=== PATIENT | female | born 1985 | race Caucasian/White ===

== ENCOUNTER → 2025-03-05 13:04 | Outpatient (REF) | payer OTHER, SELFPAY | LOC: RAD 13:04 | PROVIDERS: ATTENDING PHYSICIAN Obstetrics & Gynecology | DX: Z31.41 Encounter for fertility testing (principal); N97.9 Female infertility, unspecified | CPT/HCPCS: 58340; 74740 ==

== ENCOUNTER → 2025-04-17 14:28 | Outpatient (REF) | payer OTHER, SELFPAY | LOC: HWRAD 14:28 | PROVIDERS: ATTENDING PHYSICIAN Podiatrist Foot & Ankle Surgery; FAMILY PHYSICIAN Family Medicine | DX: M20.42 Other hammer toe(s) (acquired), left foot (principal) | CPT/HCPCS: 73630 ==

== ENCOUNTER 2025-06-15 19:43 | Emergency (ER) | payer OTHER, SELFPAY ==
[2025-06-15 19:47] VITALS: BP 142/109
[2025-06-15 20:27] LABS: Urine Character Clear (Clear)
[2025-06-15 20:28] LABS: Hematocrit 38.6 % (37.0-47.0); Hemoglobin 13.7 g/dL (12.0-16.0); Mean Corp Hgb Conc. 35.5 g/dL (33.0-37.0); Mean Corpuscular Volume 92.8 fL (81.0-99.0); Nucleated Red Blood Cells % 0 %; Platelet Count 295 10^3/uL (130-400); Red Cell Dist. Width 12.1 % (11.5-14.5)
[2025-06-15 20:33] LABS: Urine Squamous Cell >30 /LPF (Few)
[2025-06-15 20:34] LABS: Urine Red Blood Cell 0-2 /HPF (0-2)
[2025-06-15 20:44] LABS: ALT (SGPT) 14 U/L (0-35); AST (SGOT) 19 U/L (14-36); Albumin 4.4 g/dl (3.5-5.0); Alkaline Phosphatase 48 U/L (38-126); Blood Urea Nitrogen 13 mg/dl (7-17); Calcium 9.8 mg/dl (8.4-10.2); Carbon Dioxide 26 mmol/L (22-30); Chloride 105 mmol/L (98-107); Glucose 102 mg/dl (70-99); Potassium 4.0 mmol/L (3.5-5.1); Sodium 136 mmol/L (135-145); Total Protein 7.2 g/dl (6.3-8.2); eGFR > 60.00
--- NOTE | 2025-06-16 00:06 | ED.GENMED ---
History of Present Illness
General
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
Time Seen by Provider: 06/15/25 23:26
History of Present Illness
History of Present Illness:
39-year-old female without significant past medical history presenting for lower abdominal pain and pelvic pain. Patient reports that 11 days ago she had a retrieval completed as part of fertility treatment. She reports that she got her menstrual
cycle last week, which was told to be expected. Her menstrual ended 2 days ago. This afternoon she started to have lower abdominal pain and cramping. Notes chills without fever. Reports history of hernia repair as 3-year-old, otherwise denies
abdominal surgeries. Denies chest pain or difficulty breathing. Denies urinary complaints. She did call her fertility doctor who reported that they can follow-up with her tomorrow. She took ibuprofen earlier today for pain. Denies additional
acute medical complaints
Past History
Past History
ED Past Medical History: Psychiatric (Anxiety) and Other (ovarian cyst, ADHD)
ED Past Surgical History: Appendectomy and Other (hernia repair)
Social History
Tobacco: Non-smoker
Alcohol: Occasional
Drug: None
Living: with roommate
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
Phy Exam
Physical Exam
Physical Exam:
General: Well-appearing, no clinical signs of dehydration, nontoxic and in no acute distress
HEENT: protecting airway
Neck: appears supple
CV: Normal heart rate, regular rhythm
Resp: No accessory muscle use, no increased work of breathing, lungs clear to auscultation bilaterally
Abd: Soft and non-distended, generalized tenderness in the lower abdomen, most prominent over the suprapubic region. No rebound or guarding
Extremities: No deformities, no swelling
Neuro: alert, no focal neurologic deficit
: deferred
Rectal: deferred
Psych: Normal affect
Skin: Intact
Course
Orders/Labs/Results
Orders:
Orders
06/15/25 20:13
Complete Blood Count/With Diff Urgent
Comprehensive Metabolic Panel Urgent
Lactate Level [Lactic Acid] Urgent
06/15/25 20:18
Urine Microscopic Reflex Cult Urgent
Urine Reflex Culture from UA [Urinalysis Reflex To Culture] Urgent
Date Specimen was Collected: 06/15/25
Time Specimen was Collected: 19:51
Urine Culture Urgent
SHAMEKA Source: U
Specimen Description:
Date Specimen was Collected: 06/15/25
Time Specimen was Collected: 19:51
06/15/25 23:54
0.9% Sodium Chloride 1000 ml [Nss] 1,000 ml IV BOLUS
Ketorolac [Toradol] 15 mg IV NOW STA
06/16/25 00:00
US Pelvis Only (non-obstetric) Urgent
Reason For Exam: pelvic pain, recent egg retrieval
06/16/25 00:25
Ondansetron Injectable [Zofran] 4 mg .ROUTE .STK-MED ONE
Ondansetron Injectable [Zofran] 4 mg IV NOW STA
Abnormal Lab Results
06/15/25 06/15/25
20:13 20:18
RBC 4.16 L 10^6/uL
(4.20-5.40)
MCH 32.9 H pg
(27.0-31.0)
Glucose 102 H mg/dl
(70-99)
Ur Occult Blood Reflex 3+ A
(Negative)
Leukocyte Esterase Rfl 1+ A
(Negative)
Urine Bacteria (Reflex) Many A
(Negative)
Urine Albumin (Reflex) 2+ A
(Neg - Trace)
06/15/25 20:13
06/15/25 20:13
Vital Signs
Initial and Last Documented VS:
Initial Vital Signs
Temp Pulse Resp BP Pulse Ox
97.8 F 83 20 142/109 99
06/15/25 19:47 06/15/25 19:47 06/15/25 19:47 06/15/25 19:47 06/15/25 19:47
Last Documented Vital Signs
Temp Pulse Resp BP Pulse Ox
97.8 F 83 18 142/109 98
06/15/25 19:47 06/15/25 19:47 06/16/25 03:05 06/15/25 19:47 06/16/25 03:05
MDM/Problems Addressed
MDM/Problems Addressed:
39-year-old female presenting to the emergency department for pelvic pain. Vital signs are significant for hypertension.
On exam, patient is in no acute distress, slightly uncomfortable secondary to pain. Mild reproducible tenderness to the lower abdomen, most prominent over the suprapubic region. Patient does note history of ovarian cyst in the past, which could be
contributing to patient's symptoms, possible ruptured cyst. Ovarian torsion is also consideration, lower suspicion given no lateralizing tenderness. UTI is a consideration. Urine obtained prior to my assessment, does show some mild leuks, however
no WBCs or additional infectious findings. Labs also obtained prior to my assessment, no leukocytosis. Patient afebrile. Without concern for systemic infection. Will obtain ultrasound imaging for further assessment. Toradol administered for pain
03:20 -ultrasound without any acute findings. Patient does note some improvement in her pain. On reassessment, continues to have some mild lower discomfort. Notes history of appendectomy in the past, concern appendicitis. Again urinary tract
affection is a consideration. For this reason we will start on Keflex. Patient remains nontoxic and hemodynamically stable with again lower suspicion for a additional serious intra-abdominal process. Do not feel patient requires any advanced
imaging at this time. Feel stable for discharge, with close neuro follow-up with fertility doctor. Return precautions discussed with patient and mother at bedside who verbalized understanding
*Pulse Oximetry
SaO2: 99
Oxygen Mode of Delivery: Room air
Patient hypoxic: no
*Critical Care Note
Total Time (30-74mins, 75-104mins- exclusive of procedures): Not Applicable
ED Attending Note
-
Portions of this chart may have been created with voice recognition software.� Occasional wrong word or��sound alike� substitutions may have occurred due to the inherent limitations of voice recognition software.
Discharge Plan
Departure
Prescriptions:
No Action
dextroamphetamine-amphetamine [Adderall] 20 MG tablet
30 mg PO DAILY
Patient Comments:
Pt states she takes this as needed, does not take every day.
multivitamin 1 EACH tablet
1 ea PO DAILY
sulfamethoxazole-trimethoprim 1 TABLET tablet
1 tab PO BID Qty: 14 0RF
Referrals:
Andrea Acharya DO [Family Provider, Family Practice]
Interventions
Interventions:
*Risk Screen - Suicide Last Done: 06/16/25 00:22
*General Assessment Last Done: 06/15/25 19:47
*Neglect/Abuse Screening Last Done: 06/16/25 00:22
*ED- Fall Risk Assessment Last Done: 06/16/25 00:22
ED-Female Genitourinary Assessment Last Done: 06/16/25 00:22
Discharge Date and Time
Print Language: EQUATORIAL GUINEAN
[2025-06-16] MEDS: TORADOL 15 MG IV (00:09)
[2025-06-16] MEDS: NSS 1000 IV (00:09)
[2025-06-16] MEDS: ZOFRAN 4 MG IV (00:29)
[2025-06-16] MEDS: KEFLEX 500 MG PO (03:28)
[2025-06-16 03:30] VITALS: BP 121/84
== END 2025-06-16 03:36 | disposition home or self-care (01) ==
LOC: EMR 19:43
PROVIDERS: Emergency Medicine; EMERGENCY PHYSICIAN Student in an Organized Health Care Education/Training Program; FAMILY PHYSICIAN Family Medicine
DX: R10.9 Unspecified abdominal pain (principal); N39.0 Urinary tract infection, site not specified; F41.9 Anxiety disorder, unspecified; F90.9 Attention-deficit hyperactivity disorder, unspecified type; I10 Essential (primary) hypertension; Z90.49 Acquired absence of other specified parts of digestive tract
CPT/HCPCS: 99284; 96374; 96375; 96361; 76856; 80053; 81003; 81015; 83605; 85025; 87077; 87086

== ENCOUNTER 2025-06-17 06:57 | Emergency (ER) | payer OTHER, SELFPAY ==
[2025-06-17 07:02] VITALS: BP 113/76
--- NOTE | 2025-06-17 09:01 | ED.GENMED ---
History of Present Illness
General
Chief Complaint: Abdominal Symptoms
Time Seen by Provider: 06/17/25 08:51
History of Present Illness
History of Present Illness:
39-year-old female presents to the emergency department for evaluation of persistent left lower quadrant pain. She was seen here 2 days ago for this, at this point she is 5 days status post a retrieval procedure. Underwent ultrasound here 2 days
ago that was unremarkable. Continues to have sharp episodic pains in the left lower quadrant. Has not had a bowel movement in 5 days. Denies any fevers or chills but does have nausea with vomiting. No lower urinary tract voiding symptoms. Prior
abdominal surgery with a includes hernia repair and appendectomy
Past History
Past History
ED Past Medical History: Psychiatric (Anxiety) and Other (ovarian cyst, ADHD)
ED Past Surgical History: Appendectomy and Other (hernia repair)
Social History
Tobacco: Non-smoker
Alcohol: Occasional
Drug: None
Living: with roommate
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
Review of Systems
Review of Systems
Allergies reviewed?: Yes
All Other Systems: ROS reviewed and negative except as documented in HPI and ROS
Phy Exam
Physical Exam
Physical Exam:
GEN: Well appearing, NAD, WDWN
HEENT: Oral mucosa moist, no scleral icterus
Cardiac: Regular rate
Lung: No respiratory distress, no tachypnea
Abdomen: Soft, moderate left lower quadrant tenderness with no masses or rigidity
MSK: No gross deformity or injuries
Skin: Good color, no pallor or jaundice, no rashes
Neuro: AO x3, moves all extremities freely
Psych: Calm, cooperative
Course
Orders/Labs/Results
Orders:
Orders
06/17/25 09:00
CT Abd/Pel (IV only)-DH only Urgent
Comment:
Reason For Exam: LLQ pain
Test Result ONCE
06/17/25 09:01
Morphine Sulfate 4 mg IV NOW STA
06/17/25 09:10
Ondansetron Injectable [Zofran] 4 mg IV NOW STA
06/17/25 09:16
Complete Blood Count/With Diff Urgent
Comprehensive Metabolic Panel Urgent
HCG, Serum Qualitative Screen Urgent
06/17/25 09:50
Lactated Ringers [Lr] 1,000 ml IV BOLUS
06/17/25 10:27
Magnesium Citrate [Citroma] 300 ml PO ONCE ONE
Abnormal Lab Results
06/17/25
09:16
WBC 21.7 H 10^3/uL
(4.8-10.8)
RBC 4.02 L 10^6/uL
(4.20-5.40)
MCH 33.3 H pg
(27.0-31.0)
MPV 10.7 H fL
(7.4-10.4)
Abs Immat Gran (auto) 0.1 H 10^3/uL
(0-0.05)
Absolute Neuts (auto) 19.0 H 10^3/uL
(1.4-6.5)
Absolute Lymphs (auto) 1.0 L 10^3/uL
(1.2-3.4)
Absolute Monos (auto) 1.5 H 10^3/uL
(0.1-0.6)
Immature Gran % 0.6 H %
(0-0.5)
Neutrophils % 87.7 H %
(42.2-75.2)
Lymphocytes % 4.5 L %
(20.5-51.1)
Sodium 134 L mmol/L
(135-145)
Glucose 113 H mg/dl
(70-99)
06/17/25 09:16
06/17/25 09:16
Vital Signs
Initial and Last Documented VS:
Initial Vital Signs
Temp Pulse Resp BP Pulse Ox
97.9 F 102 16 113/76 98
06/17/25 07:02 06/17/25 07:02 06/17/25 07:02 06/17/25 07:02 06/17/25 07:02
Last Documented Vital Signs
Temp Pulse Resp BP Pulse Ox
97.9 F 86 16 113/74 100
06/17/25 07:02 06/17/25 09:48 06/17/25 09:48 06/17/25 09:48 06/17/25 09:48
MDM/Problems Addressed
MDM/Problems Addressed:
Imaging reveals stercoral colitis which may be secondary to her recent ovarian egg harvesting procedure. As it is quite proximal in the descending colon enema is not likely be beneficial thus we will treat with laxatives. She does have significant
leukocytosis but this is likely a stress response due to pain and hypovolemia, do not see any indication for antibiotics at this point
*Pulse Oximetry
SaO2: 98
Oxygen Mode of Delivery: Room air
Patient hypoxic: no
*Critical Care Note
Total Time (30-74mins, 75-104mins- exclusive of procedures): Not Applicable
ED Attending Note
-
Portions of this chart may have been created with voice recognition software.� Occasional wrong word or��sound alike� substitutions may have occurred due to the inherent limitations of voice recognition software.
Discharge Plan
Departure
Patient Disposition: Home (Routine Discharge)
Date of Disposition: 06/17/25
Time of Disposition: 10:27
Patient with high blood pressure during this ER visit?: No
Discharge Problem:
Stercoral colitis
Instructions: Constipation, Adult (DC)
Prescriptions:
New
ondansetron 4 mg tablet,disintegrating
4 mg PO TIDPRN PRN (Reason: nausea/vomiting) Qty: 10 0RF
No Action
dextroamphetamine-amphetamine [Adderall] 20 MG tablet
30 mg PO DAILY
Patient Comments:
Pt states she takes this as needed, does not take every day.
multivitamin 1 EACH tablet
1 ea PO DAILY
sulfamethoxazole-trimethoprim 1 TABLET tablet
1 tab PO BID Qty: 14 0RF
cephalexin 500 mg capsule
500 mg PO Q12H 7 Days Qty: 14 0RF
ondansetron 4 mg Tablet,Disintegrating
4 mg PO TIDPRN PRN (Reason: nausea/vomiting) Qty: 6 0RF
Referrals:
Andrea Acharya DO [Family Provider, Family Practice]
Activity Restrictions/Additional Instructions:
If the magnesium citrate does not provide relief, proceed with the following bowel prep starting the tomorrow. Mix a full bottle of 238 g of MiraLAX in 2 to 32 ounce beverages of clear liquid of your choice. Take 2 Dulcolax tablets before you
start the prep and 2 Dulcolax tablets after you finish the prep 8 hours later.
Interventions
Interventions:
*Risk Screen - Suicide Last Done: 06/17/25 07:02
*General Assessment Last Done: 06/17/25 07:02
*Neglect/Abuse Screening Last Done: 06/17/25 07:02
*ED- Fall Risk Assessment Last Done: 06/17/25 07:02
*Nursing Disposition Last Done: 06/17/25 11:14
YE-Nopwys-Nmmnjxtbmh Assessment Last Done: 06/17/25 09:10
Discharge Date and Time
Discharge Date/Time: 06/17/25 11:15
Print Language: FIJIAN
[2025-06-17] MEDS: MORPHINE SULFATE 4 MG IV (09:12)
[2025-06-17] MEDS: ZOFRAN 4 MG IV (09:13)
[2025-06-17 09:15] VITALS: BMI 20.5
[2025-06-17 09:30] LABS: Hematocrit 37.7 % (37.0-47.0); Hemoglobin 13.4 g/dL (12.0-16.0); Mean Corp Hgb Conc. 35.5 g/dL (33.0-37.0); Mean Corpuscular Volume 93.8 fL (81.0-99.0); Nucleated Red Blood Cells % 0 %; Platelet Count 246 10^3/uL (130-400); Red Cell Dist. Width 12.0 % (11.5-14.5)
[2025-06-17 09:48] VITALS: BP 113/74
[2025-06-17] MEDS: LR 1000 IV (09:53)
[2025-06-17 10:05] LABS: HCG, Serum Qualitative Screen Negative
[2025-06-17 10:06] LABS: ALT (SGPT) 12 U/L (0-35); AST (SGOT) 17 U/L (14-36); Albumin 4.0 g/dl (3.5-5.0); Alkaline Phosphatase 54 U/L (38-126); Blood Urea Nitrogen 7 mg/dl (7-17); Calcium 9.2 mg/dl (8.4-10.2); Carbon Dioxide 24 mmol/L (22-30); Chloride 105 mmol/L (98-107); Estimated Creatinine Clearance 74 ml/min; Glucose 113 mg/dl (70-99); Potassium 3.8 mmol/L (3.5-5.1); Sodium 134 mmol/L (135-145); Total Protein 6.6 g/dl (6.3-8.2); eGFR > 60.00
[2025-06-17] MEDS: CITROMA 300 ML PO (10:32)
== END 2025-06-17 11:15 | disposition home or self-care (01) ==
LOC: EMR 06:57
PROVIDERS: Physician Assistant; EMERGENCY PHYSICIAN Emergency Medicine; FAMILY PHYSICIAN Family Medicine
DX: K52.89 Other specified noninfective gastroenteritis and colitis (principal); F41.9 Anxiety disorder, unspecified; F90.9 Attention-deficit hyperactivity disorder, unspecified type; Z90.49 Acquired absence of other specified parts of digestive tract
CPT/HCPCS: 74177; 80053; 84703; 85025; 96361; 96374; 96375; 99284; Q9967

== ENCOUNTER 2025-06-17 22:13 | Inpatient (IN) | payer OTHER, SELFPAY ==
[2025-06-17 17:00] VITALS: BP 114/75
[2025-06-17 19:27] VITALS: BMI 21.7
[2025-06-17 19:31] VITALS: BP 112/73
--- NOTE | 2025-06-17 19:57 | ED.GENMED ---
History of Present Illness
General
Chief Complaint: Abdominal Pain
Source: patient
Exam Limitations: none
Time Seen by Provider: 06/17/25 19:37
Nursing documentation reviewed up to this point in time: agreed with
History of Present Illness
History of Present Illness:
Patient discharged from ED earlier today, returns to ED secondary to persistent abdominal pain associated with nausea and vomiting, despite taking medications. Denies fever or chills. Denies diarrhea. Denies trauma. Patient has been evaluated in
ED on multiple occasion for similar complaint over the past 48 hours. Denies recent travel. Denies recent change in medications or diet. Patient's recent medical history is significant for ovarian egg retrieval last week.
Past History
Past History
ED Past Medical History: Psychiatric (Anxiety) and Other (ovarian cyst, ADHD)
ED Past Surgical History: Appendectomy and Other (hernia repair)
Social History
Tobacco: Non-smoker
Alcohol: Occasional
Drug: None
Living: with roommate
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
Review of Systems
Review of Systems
Allergies reviewed?: Yes
All Other Systems: ROS reviewed and negative except as documented in HPI and ROS
Constitutional: Reports no symptoms; Denies fever
Cardiac: Reports no symptoms
ABD/GI: Reports abdominal pain, nausea and vomiting; Denies diarrhea
Musculoskeletal: Reports no symptoms
Skin: Reports no symptoms
Neurological: Reports no symptoms
Phy Exam
Physical Exam
Physical Exam:
Physical Exam
General: moderate distress, acutely ill. afebrile
Head: nc/at. eomi
Neck: supple. no meningeal signs.
Heart: s1/s2 regular rate and rhythm
Lungs: no acute respiratory distress. clear bilaterally
Abdomen: normal bowel sounds. no distention. mild diffuse tenderness to palpation
Neuro: alert and oriented x 3. no focal neurological deficits
Skin: no rash
Psychiatric: well kept. interactive and cooperative
Extremities: no edema. no calf tenderness.
Course
Orders/Labs/Results
Orders:
Orders
06/17/25 19:55
0.9% Sodium Chloride 1000 ml [Nss] 1,000 ml IV BOLUS
HYDROmorphone [Dilaudid] 1 mg IV NOW STA
Ondansetron Injectable [Zofran] 4 mg IV NOW STA
Pantoprazole [Protonix IV] 40 mg IV NOW STA
Piperacillin/Tazo 3.375 Gram [Zosyn] 3.375 gram in 50 ml IV NOW
06/17/25 21:25
Enema As Directed
Type: Milk and molasses
Amount: 1
06/17/25 21:47
Admit/Transfer Patient As Directed
Co-Sign Provider:
Level of Care: Inpatient admission
Assign to:: Medical/Surgical
Physician / Group: Min
Diagnosis: Stercoral Colitis
Reason for Hospitalization: Stercoral Colitis
Expected length of stay greater than two midnights?: Yes
ELOS- Estimated Length of Stay in days: 3
I certify the patient meets the requirements for IP care: Yes
06/17/25 21:48
Code Status As Directed
Resuscitation Status: Full Code
PRN Pain Medication Management As Directed
May give lesser potent ordered pain med per pt: Yes
preference::
Protocol:: Medication orders for pain may be administered in a
manner that supports deferring to patient preference
when the pt is:
- Requesting an ordered lesser potent pain medication.
Least to most potent pain medications are defined
as: acetaminophen < NSAID < tramadol < opioids
(morphine, oxycodone, hydromorphone).
- Requesting a lesser dose of the same medication IF
ORDERED.
- Requesting a less intrusive route of administration
if both routes are prescribed by the provider (PO <
IV).
Vital Signs
Initial and Last Documented VS:
Initial Vital Signs
Temp Pulse Resp BP Pulse Ox
98.4 F 109 18 114/75 99
06/17/25 17:00 06/17/25 17:00 06/17/25 17:00 06/17/25 17:00 06/17/25 17:00
Last Documented Vital Signs
Temp Pulse Resp BP Pulse Ox
98.4 F 81 18 128/77 100
06/17/25 17:00 06/17/25 22:21 06/17/25 22:21 06/17/25 22:20 06/17/25 22:21
MDM/Problems Addressed
MDM/Problems Addressed:
Blood work and CT scan report reviewed from earlier today. Significant leukocytosis noted along with stercoral colitis. In light of patient's ongoing symptoms with significant distress, patient will be admitted for further evaluation and treatment.
*Pulse Oximetry
SaO2: 97
Oxygen Mode of Delivery: Room air
Patient hypoxic: no
*Critical Care Note
Total Time (30-74mins, 75-104mins- exclusive of procedures): Not Applicable
ED Attending Note
-
Portions of this chart may have been created with voice recognition software.� Occasional wrong word or��sound alike� substitutions may have occurred due to the inherent limitations of voice recognition software.
Discharge Plan
Departure
Patient Disposition: Admit
Date of Disposition: 06/17/25
Time of Disposition: 20:00
Admit to: Med/Surg
Presentation/result/management discussed w/ accepting MD/DO: Hospitalist
Discharge Problem:
Stercoral colitis, Intractable abdominal pain
Interventions
Interventions:
*Risk Screen - Suicide Last Done: 06/17/25 17:00
*General Assessment Last Done: 06/17/25 17:00
*Neglect/Abuse Screening Last Done: 06/17/25 19:27
*ED- Fall Risk Assessment Last Done: 06/17/25 19:27
*ED COVID-19 Vaccine History Last Done: 06/17/25 19:27
MK-Rvmbfx-Ulnsxasbhy Assessment Last Done: 06/17/25 19:27
[2025-06-17 20:00] VITALS: BP 109/77
[2025-06-17] MEDS: DILAUDID 1 MG IV (20:04)
[2025-06-17] MEDS: ZOSYN 50 IV (20:04)
[2025-06-17] MEDS: PROTONIX IV 40 MG IV (20:04)
[2025-06-17] MEDS: ZOFRAN 4 MG IV (20:04)
[2025-06-17] MEDS: NSS 1000 IV (20:07)
[2025-06-17 21:00] VITALS: BP 130/73
--- NOTE | 2025-06-17 21:50 | HPS.HSE ---
Family Physician
-
Family Physician: Andrea Acharya DO
Chief Complaint
-
Abd Pain, N/V
History of Present Illness
Patient is a 39y F with PMH significant for migraines who presents to ED complaining of abdominal pain and nausea. Patient states that she underwent recent egg harvest last . On Sunday, she started to have lower abdominal pain and
nausea. She presented to the ED here where US was unremarkable. She had TV US by her OB as an outpatient which was also unremarkable. She had persistent / worsening pain, nausea and occasional, small, non-bloody emesis. No fevers / chills.
Patient is very anxious. She states that her last BM was on Sunday - and that was fairly small.
She returned to the ED today with persistent symptoms. CT at that time showed stercoral colitis of the descending colon with large stool ball in that area. Patient was discharged with Miralax.
She states that her pain has increased since earlier today and returned to the ED this evening for evaluation.
Medical History
Past Medical History
Past Medical History: Reports Other
Additional Past Medical History:
ADHD
Migraines
Past Surgical History: Reports Other
Additional Past Surgical History:
Hernia Repair
Foot Surgery
Social History
Tobacco: Non-smoker
Alcohol: Occasional
Drug: None
Family History
Family History: Not pertinent
Allergies / Home Medications
Allergies reflects when Allergies were last updated in [facility].
Home Medications with original date entered in [facility]
Allergy/Medication List:
Allergies
Allergy/AdvReac Type Severity Reaction Status Date / Time
kiwi Allergy Anaphylaxis Verified 06/17/25 07:02
latex Allergy Rash Verified 06/17/25 07:02
Home Medications
dextroamphetamine-amphetamine 20 mg tablet (Adderall) 30 mg PO TID 12/06/18
cetirizine 10 mg tablet 10 mg PO DAILY 06/17/25
Review of Systems
-
History Source: Patient
A 12 point ROS was completed and negative except as noted: Yes
Constitutional: Denies Fever or Chills
Respiratory: Denies Cough or Trouble Breathing
Cardiac: Denies Chest Pain or Palpitations
Abdomen/GI: Reports Abdominal Pain, Nausea, Vomiting and Constipated; Denies Diarrhea, Bloody Stools or Black Stools
: Reports Flank Pain; Denies Dysuria or Frequency
Musculoskeletal: Denies Joint Pain or Edema
Neurological: Denies Dizzy or Headache
Psych: Reports Anxiety
Physical Exam
Vital Signs
Vital Signs
Temp Pulse Resp BP Pulse Ox
98.4 F 71 17 130/73 98
06/17/25 17:00 06/17/25 19:31 06/17/25 19:31 06/17/25 21:00 06/17/25 21:00
Physical Exam
General: Other (Anxious 39y F in mild distress due to pain and anxiety.)
HEENT: Moist mucous membranes and PERRLA
Respiratory: Clear; No Wheezes, Rales or Rhonchi
Cardiac: S1/S2 and Regular Rhythm; No Murmur
GI: Other (Soft, pos tenderness in the LLQ with voluntary guarding. Pos BS.)
Musculoskeletal: No Clubbing, No Cyanosis and No Edema
Neuro: AO x 3
Psych: Anxious
Impression/Plan
-
A/P: Patient is a 39y F with PMH significant for migraines who presents to ED complaining of abdominal pain x several days.
Stercoral Colitis / Constipation
- Admit for further evaluation and treatment.
- Stool collection too proximal for manual disimpaction.
- Bowel regimen consisting of enemas, Miralax, etc.
- Pain control, antiemetics, etc.
- Try to avoid opioid medications.
- Add Ativan for nausea and anxiety.
- Follow for clinical improvement / positive effects of bowel regimen.
- IV Zosyn for now - though suspect inflammatory > infectious process.
- Follow temperature curve and monitor for any new / worsening symptoms.
Migraine Headaches
ADHD
- Stable. Patient has not taken Adderall in some time - takes only as needed during work.
DVT Prophylaxis: SCDs
Code Status: Full
[2025-06-17 22:20] VITALS: BP 128/77
[2025-06-17 23:37] VITALS: BP 129/79
[2025-06-17] MEDS: TORADOL 10 MG IV (23:52)
[2025-06-17] MEDS: FLUSH (NSS) 1 FLUSH IV (23:53)
[2025-06-18] MEDS: REGLAN 10 MG IV (00:07)
--- NOTE | 2025-06-18 00:35 | PTCARENOTE ---
Pt received from ED to 419-1. Pt oriented to room and call brewer.
[2025-06-18 00:44] VITALS: BP 130/82; BMI 20.9
[2025-06-18] MEDS: ATIVAN 0.5 MG PO ×2 (00:58→23:06)
[2025-06-18] MEDS: SENOKOT 17.2 MG PO ×2 (00:58→19:47)
[2025-06-18] MEDS: LR 1000 IV ×2 (00:58→09:19)
[2025-06-18] MEDS: ZOSYN 50 IV ×4 (01:08→19:47)
[2025-06-18] MEDS: DILAUDID 1 MG IV (05:16)
[2025-06-18 08:05] LABS: Hematocrit 33.0 % (37.0-47.0); Hemoglobin 11.7 g/dL (12.0-16.0); Mean Corp Hgb Conc. 35.5 g/dL (33.0-37.0); Mean Corpuscular Volume 92.4 fL (81.0-99.0); Platelet Count 235 10^3/uL (130-400); Red Cell Dist. Width 12.2 % (11.5-14.5)
[2025-06-18] MEDS: MIRALAX 17 GRAMS PO ×2 (08:53→19:47)
[2025-06-18] MEDS: TORADOL 10 MG IV ×3 (08:53→23:05)
[2025-06-18 09:04] VITALS: BP 133/73
[2025-06-18 09:06] LABS: Blood Urea Nitrogen 4 mg/dl (7-17); Calcium 8.2 mg/dl (8.4-10.2); Carbon Dioxide 24 mmol/L (22-30); Chloride 104 mmol/L (98-107); Estimated Creatinine Clearance 86 ml/min; Glucose 94 mg/dl (70-99); Potassium 3.3 mmol/L (3.5-5.1); Sodium 134 mmol/L (135-145); eGFR > 60.00
--- NOTE | 2025-06-18 12:58 | W.PN.HOSP.TC ---
Addendum entered and electronically signed by Calos Kelly MD 06/18/25 13:02:
hypokalemia -replete
Original Note:
Today's Communication/Plan
-
Advance diet
Hold further IV fluids
Continue with IV Zosyn
Follow CBC
Assessment / Plan
Assessment / Plan
A/P: Patient is a 39y F with PMH significant for migraines who presents to ED complaining of abdominal pain x several days.
Stercoral Colitis / Constipation
- Stool collection too proximal for manual disimpaction.
- Bowel regimen consisting of senna , Miralax. she had a bowel movement last night.
- Pain control, antiemetics
- Try to avoid opioid medications.
- Continue with Ativan for nausea and anxiety.
- Improving clinical situation. Follow white count.
- Continue IV Zosyn for now
- Follow temperature curve and monitor for any new / worsening symptoms.
Migraine Headaches
ADHD
- Stable. Patient has not taken Adderall in some time - takes only as needed during work.
DVT Prophylaxis: SCDs
Code Status: Full
Anticipated Discharge: 24 - 48 hours
Subjective/Interval History
-
Date of Service: June 18, 2025
Patient is feeling improved from abdominal pain standpoint. She had a bowel movement yesterday with enema. No nausea or vomiting. No fever or chills.
Denies any lightheadedness.
Objective Data
-
Labs:
Laboratory Results
06/18/25
07:31
WBC 18.3 H
Hgb 11.7 L
Hct 33.0 L
Plt Count 235
Sodium 134 L
Potassium 3.3 L
Chloride 104
Carbon Dioxide 24
BUN 4 L
Creatinine 0.5 L
Glucose 94
Calcium 8.2 L
Vital Signs:
Vital Signs
Temp Pulse Resp BP Pulse Ox
98.1 F 98 16 133/73 98
06/18/25 09:04 06/18/25 09:04 06/18/25 09:04 06/18/25 09:04 06/18/25 09:04
I&O
06/17/25 06/18/25 06/19/25
06:59 06:59 06:59
Intake Total 1050 / 1050
Balance 1050 / 1050
Physical Exam
-
General: Comfortable
Respiratory: Clear to Auscultation and Non Labored Respirations; Negative Accessory Resp Muscle Use
Cardiac: Regular Rhythm and S1/S2
GI: Soft, Nondistended, Normal Bowel Sounds and Tender (Left lower quadrant without rebound guarding rigidity)
Neuro: AO x 3
Psych: Calm
Data Reviewed
-
Labs: Labs Reviewed by me
[2025-06-18] MEDS: KCL 40 MEQ PO (13:25)
--- NOTE | 2025-06-18 13:53 | CM ---
IA completed. Reviewed chart. Met with pt and mother at bedside. Lives in a townhouse with . Has BR on 1st floor, 3 steps into the home. No hx of DME, SNF or HC. NO insecurities identified. Confirmed PCP, Rx and insurance.
PCP: Andrea Acharya
Rx: [facility] and [facility] (preferred provider)
Plan: Home, no needs. Will follow for d/c needs
[2025-06-18] MEDS: MORPHINE SULFATE 2 MG IV ×2 (14:36→20:46)
[2025-06-18] MEDS: LR IV (15:00)
[2025-06-18 15:23] VITALS: BP 121/69
[2025-06-18] MEDS: ZOFRAN 4 MG IV (18:36)
[2025-06-18 23:57] VITALS: BP 135/84
[2025-06-19] MEDS: ZOSYN 50 IV ×4 (02:47→20:25)
[2025-06-19] MEDS: TORADOL 10 MG IV ×3 (06:17→18:24)
[2025-06-19] MEDS: ATIVAN 0.5 MG PO ×2 (06:20→22:48)
[2025-06-19 07:00] VITALS: BP 105/73
--- NOTE | 2025-06-19 07:36 | W.PN.HOSP.TC ---
Today's Communication/Plan
-
See plan
Assessment / Plan
Assessment / Plan
Physical Exam
General: Comfortable
Respiratory: Clear to Auscultation and Non Labored Respirations; Negative Accessory Resp Muscle Use
Cardiac: Regular Rhythm and S1/S2
GI: Soft, Nondistended, Normal Bowel Sounds and Tender (Left lower quadrant without rebound guarding rigidity)
Neuro: AO x 3
Psych: Calm
Assessment/Plan
Patient is a 39y F with PMH significant for migraines who presents to ED complaining of abdominal pain x several days.
Stercoral Colitis / Constipation
- Stool collection too proximal for manual disimpaction.
- Bowel regimen consisting of senna , Miralax --> patient reported continued abdominal pain, no significant bowel movement despite laxatives, and imaging suggests possible colonic mass --> therefore consulted GI
- Milk of Molasses enema+Clear Liquid diet+Increased Frequency of Miralax to TID-->if has BM, then plan for then initiate magnesium citrate and bowel prep--> then colonoscopy on 06/22/25
- Pain control, antiemetics
- Try to avoid opioid medications.
- Continue with Ativan for nausea and anxiety.
- Improving clinical situation. Follow white count.
- Continue IV Zosyn for now
- Follow temperature curve and monitor for any new / worsening symptoms.
Hypokalemia - repleted
Migraine Headaches
ADHD
- Stable. Patient has not taken Adderall in some time - takes only as needed during work.
DVT Prophylaxis: SCDs. Lovenox.
Code Status: Full
Anticipated Discharge: > 48 hours
Subjective/Interval History
-
Date of Service: June 19, 2025
Patient was seen and examined. She reported still having abdominal pain, nausea, still with no bowel movements.
Objective Data
-
Labs:
Laboratory Results
06/19/25
06:00
WBC Pending
Hgb Pending
Hct Pending
Plt Count Pending
Sodium Pending
Potassium Pending
Chloride Pending
Carbon Dioxide Pending
BUN Pending
Creatinine Pending
Glucose Pending
Calcium Pending
Vital Signs:
Vital Signs
Temp Pulse Resp BP Pulse Ox
98.8 F 87 12 135/84 99
06/18/25 23:57 06/18/25 23:57 06/18/25 23:57 06/18/25 23:57 06/18/25 23:57
I&O
06/18/25 06/19/25 06/20/25
06:59 06:59 06:59
Intake Total 2440 / 2440
Balance 2440 / 2440
--- NOTE | 2025-06-19 07:56 | PN.CDI ---
CDI
- -
CDI:
Physician Documentation Request
Admit Date: 06/17/25 22:13
Dear Doctor Erin,
Please review the following and provide your response in the progress notes.
Clinical Indicators:
PN, 06/18
#Stercoral Colitis / Constipation
#...- Stool collection too proximal for manual disimpaction.
#...- Improving clinical situation. Follow white count.
#...- Continue IV Zosyn for now
Laboratory Tests
06/18/25
07:
WBC 18.3 H
Please provide additional specificity regarding the type of colitis:
#-Infectious Colitis
#�Bacterial Colitis
-Indicate organism such as C. diff, other, or unspecified
#-Bacterial enteritis
#-Viral enteritis
#-Ischemic
�Indicate if acute, subacute, or chronic
#-Non-infectious
-Indicate type such as toxic, allergic, dietetic, eosinophilic, etc.
#-Other (please specify)
Use of terms such as suspected, likely, concern for, or probable (associated with a specific diagnosis that is being evaluated, monitored, or treated as if it exists) are acceptable and can be coded in the inpatient setting, when documented at the
time of discharge.
Thank you,
Kamla Corea RN BSN CCDS
CDI Specialist
Please contact via tiger text
Please use your independent medical judgment in providing your response.
[2025-06-19] MEDS: MIRALAX 17 GRAMS PO ×2 (08:15→17:12)
[2025-06-19 08:47] LABS: Hematocrit 32.6 % (37.0-47.0); Hemoglobin 11.4 g/dL (12.0-16.0); Mean Corp Hgb Conc. 35.0 g/dL (33.0-37.0); Mean Corpuscular Volume 93.7 fL (81.0-99.0); Platelet Count 238 10^3/uL (130-400); Red Cell Dist. Width 12.4 % (11.5-14.5)
[2025-06-19 09:13] LABS: Blood Urea Nitrogen 5 mg/dl (7-17); Calcium 8.3 mg/dl (8.4-10.2); Carbon Dioxide 24 mmol/L (22-30); Chloride 107 mmol/L (98-107); Estimated Creatinine Clearance 86 ml/min; Glucose 87 mg/dl (70-99); Potassium 4.1 mmol/L (3.5-5.1); Sodium 135 mmol/L (135-145); eGFR > 60.00
--- NOTE | 2025-06-19 10:50 | PTCARENOTE ---
Care assumed of patient after report received from Sami LYONS.
[2025-06-19] MEDS: FLUSH (NSS) 2 FLUSH IV ×2 (12:12→18:25)
--- NOTE | 2025-06-19 13:45 | CON.GI ---
Addendum entered and electronically signed by Yancy Crespo MD 06/19/25 19:57:
The patient was seen and examined by me independently in collaboration with the nurse practitioner.
Past medical history/social history/medications/allergies/family history reviewed.
Lab data and imaging data reviewed.
39-year-old female presenting with abdominal pain and constipation after having egg retrieval for IVF. This is an acute change for her. She also has some nausea. She underwent a CT scan here which showed fatty liver, ovoid collection of stool in
the descending colon and concentric wall thickening of the descending colon with pericolonic inflammation stranding surrounding the segment, no definitive colonic mass but short segment eccentric wall thickening, moderate amount of stool throughout
the colon. This could be related to inflammation but cannot exclude mass. I personally reviewed the images as well.
With her abdominal pain and nausea, she is having difficulty tolerating much liquids. Therefore, we will continue to give her enemas and she can hold off on the MiraLAX. I will get an x-ray tomorrow to assess her stool burden. If her pain and
nausea improved, we will try to give her prep for the above. Will plan for colonoscopy versus flexible sigmoidoscopy on Sunday. I discussed with the patient differential diagnosis includes but not limited to malignancy, inflammation (seems
atypical to have stercoral colitis at 39 with no chronic constipation), less likely inflammatory bowel disease. Emergency room doctor also mention to her the possibility that perhaps during her egg retrieval perhaps her colon was stunned and led to
a motility issue.
Original Note:
Consultation
-
Date/Time Consultation Requested: 06/19/25 1206
Date/Time Consultation Performed: 06/19/25 1215
Requesting Provider: Dr. Khan
Performing Provider: Dr. Crespo/SALOMÓN Pena
Reason for Consultation: abd pain, constipation, possible mass
Medical History
Chief Complaint / HPI
Chief Complaint: abd pain
History of Present Illness:
39-year-old female with past medical history of ADHD, ovarian cysts, anxiety who is recently going through IVF and had bilateral egg retrieval on 06/04/2025 who presents to the emergency room x 3 with left upper and lower quadrant abdominal pain
since Sunday. We are asked to evaluate for the same as well as significant constipation and CT findings that are abnormal concerning focal ovoid collection of stool in the descending colon which measures 5.5 x 4.3 x 6.7 cm. There is a concentric
wall thickening of the descending colon. There is pericolonic inflammatory stranding surrounding the segment diffusely, while this could be related to inflammatory change. Mass at this level cannot be excluded. The patient states that she does
not have a significant history of constipation prior to this although she does state that periodically she would have some pebble-like stools on occasion. She was taking Toradol post IVF egg retrieval. She states that she was feeling fine up until
Sunday when she started having left-sided abdominal discomfort. This is when she had her last bowel movement. It was pebble-like. She started having nausea. She took some Gas-X which did not relieve the discomfort. She came to the emergency
room on 06/15/2025 where she had an ultrasound of the pelvis that was unremarkable. She had lab work. She was given Zofran and started on Keflex for possible UTI. She was sent home. She came back to the ER on 06/17/2025 as she had vomiting while
in the shower. Her pain had increased. In the ER she had a leukocytosis of 21.7. She had a CT of the abdomen and pelvis with IV contrast as detailed above and will be fully described below. She was given a bottle of mag citrate and sent home.
The patient states that she vomited at home. She did not pass any stool and she promptly return to the ER. At this point she had not had any bowel movements. She was given a milk molasses enema with small passage of stool. She was admitted for
further evaluation. We are asked to evaluate for abdominal pain as well as abnormal CT findings as stated above. The patient denies any prior history of issues from a GI standpoint. She denies any fevers, chills, melena, hematochezia, dysphagia
or odynophagia. No early satiety or unintended weight loss. She denies any blood within stools. She denies any thinning of her bowel movements. There is no family history of gastrointestinal malignancy or IBD. She has never had an endoscopy or
colonoscopy before.
Past Medical History
Past Medical History: Other (ADHD, ovarian cyst, anxiety)
Past Surgical History: Other (Right inguinal hernia repair as a child, foot surgery, appendectomy, bilateral egg retrieval (06/04/2025))
Social History
Tobacco: Non-Smoker
Alcohol: None
Drug: None
Personal:
Living: With Family
Employment: Employed
Family History
Family History: Other (No family history gastrointestinal malignancy or IBD)
Allergies / Home Medications
Allergy/AdvReac Type Severity Reaction Status Date / Time
kiwi Allergy Anaphylaxis Verified 06/17/25 07:02
latex Allergy Rash Verified 06/17/25 07:02
�Medication �Instructions �Recorded
dextroamphetamine-amphetamine 20 30 mg PO TID Mental Health/Anxiety 12/06/18
mg tablet (Adderall)
cetirizine 10 mg tablet 10 mg PO DAILY Allergies 06/17/25
Review of Systems
-
All other systems: A 12 pt ROS was Negative except as stated above in HPI
Vital Signs
Temp Pulse Resp BP Pulse Ox
97.9 F 79 16 105/73 97
06/19/25 07:00 06/19/25 07:00 06/19/25 07:00 06/19/25 07:00 06/19/25 08:00
Physical Exam
Exam
General: Other (Patient tearful)
HEENT: Anicteric
Respiratory: Clear
Cardiac: Regular Rhythm
GI: Soft, Non Distended, Normal Bowel Sounds and Tender (Tender left upper quadrant, left lower quadrant)
Musculoskeletal: No Edema
Skin: Warm and Dry
Neuro: AO x 3
Psych: Calm and Other (Tearful at times)
Results
WBC 9.9 10^3/uL (4.8-10.8) 06/19/25 08:24
Hgb 11.4 g/dL (12.0-16.0) L 06/19/25 08:24
Hct 32.6 % (37.0-47.0) L 06/19/25 08:24
MCV 93.7 fL (81.0-99.0) 06/19/25 08:24
Plt Count 238 10^3/uL (130-400) 06/19/25 08:24
Sodium 135 mmol/L (135-145) 06/19/25 08:
Potassium 4.1 mmol/L (3.5-5.1) 06/19/25:
Chloride 107 mmol/L (98-107) 06/19/25 08:
Carbon Dioxide 24 mmol/L (22-30) 06/19/25 08:
BUN 5 mg/dl (7-17) L 06/19/25 08:24
Creatinine 0.6 mg/dL (0.6-1.0) 06/19/25 08:
Calcium 8.3 mg/dl (8.4-10.2) L 06/19/25 08:
Diagnostic Image Results:
CT abdomen and pelvis with IV contrast only 06/17/2025:
IMPRESSION: Findings as described above which are most consistent with stercoral colitis of the descending colon. As above, apparent eccentric wall thickening of the colon just distal to the collection of stool. While this could be related to
inflammatory change, mass at this level cannot be excluded. This could be further evaluated with follow-up colonoscopy. Abdomen and pelvis: Liver shows incidental small amount of focal fatty infiltration along the falciform ligament. In the superior
left lobe, there is a tiny low-attenuation focus which is too small to characterize, but most likely a cyst. No suspicious focal hepatic lesions. No intrahepatic biliary dilation. Gallbladder is unremarkable. Spleen is unremarkable. Pancreas is
unremarkable. Adrenal glands are unremarkable. Kidneys are unremarkable.
Pelvic ultrasound:
Unremarkable sonographic appearance of the uterus and ovaries.
Prior GI Procedures:
EGD: Never
Colonoscopy: Never
Assessment / Plan
-
39-year-old female with past medical history of ADHD, ovarian cysts, anxiety who is recently going through IVF and had bilateral egg retrieval on 06/04/2025 who presents to the emergency room x 3 with left upper and lower quadrant abdominal pain
since Sunday. We are asked to evaluate for the same as well as significant constipation and CT findings that are abnormal concerning focal ovoid collection of stool in the descending colon which measures 5.5 x 4.3 x 6.7 cm. There is a concentric
wall thickening of the descending colon. Cannot exclude mass. Patient still with nausea. No bowel movements of significance as of yet. Given milk of molasses enema.
Impression:
Abdominal pain left-sided
Abnormal CT scan with 5.5 x 4.3 x 6.7 fecal obstruction/concentric wall thickening in descending colon
Nausea
Plan:
-Will need to continue with milk of molasses enema today to try to start moving stool
- Patient still with nausea however no vomiting
- Changed to clear liquid diet
- MiraLAX 3 times daily
- Once patient with some movement of bowels we will then initiate magnesium citrate and bowel prep
- Will check abdominal x-ray in morning to evaluate bowel loops and fecal burden
- Trend daily labs
- Plan on colonoscopy for Sunday
- Discussed with patient and mother at bedside at length
-
-
Thank you for consultation and allowing me to participate in the patient's care. Please call the service station manager GI physician during the after hours with any questions or concerns.
[2025-06-19] MEDS: FLUSH (NSS) 1 FLUSH IV (14:06)
--- NOTE | 2025-06-19 16:19 | CM ---
CM reviewed chart, plan for colonoscopy Sunday. CM will continue to follow for all discharge planning needs.
Plan; Colonoscopy Sunday
[2025-06-19 16:29] VITALS: BP 128/83
[2025-06-19] MEDS: TYLENOL 650 MG PO (17:15)
[2025-06-19] MEDS: LOVENOX 40 MG SC (20:25)
[2025-06-19] MEDS: MIRALAX PO (22:48)
[2025-06-19] MEDS: SENOKOT PO (22:48)
[2025-06-19 23:30] VITALS: BP 116/75
[2025-06-20] MEDS: TORADOL 10 MG IV ×3 (02:21→15:25)
[2025-06-20] MEDS: ZOSYN 50 IV ×4 (02:21→19:53)
[2025-06-20 08:08] LABS: Hematocrit 33.8 % (37.0-47.0); Hemoglobin 11.6 g/dL (12.0-16.0); Mean Corp Hgb Conc. 34.3 g/dL (33.0-37.0); Mean Corpuscular Volume 95.5 fL (81.0-99.0); Nucleated Red Blood Cells % 0 %; Platelet Count 274 10^3/uL (130-400); Red Cell Dist. Width 12.3 % (11.5-14.5)
[2025-06-20 08:12] VITALS: BP 132/80
[2025-06-20 08:32] LABS: ALT (SGPT) < 10 U/L (0-35); AST (SGOT) 12 U/L (14-36); Albumin 3.3 g/dl (3.5-5.0); Alkaline Phosphatase 50 U/L (38-126); Blood Urea Nitrogen 6 mg/dl (7-17); Calcium 8.8 mg/dl (8.4-10.2); Carbon Dioxide 28 mmol/L (22-30); Chloride 106 mmol/L (98-107); Estimated Creatinine Clearance 74 ml/min; Glucose 89 mg/dl (70-99); Magnesium 2.1 mg/dl (1.6-2.3); Potassium 4.1 mmol/L (3.5-5.1); Sodium 138 mmol/L (135-145); Total Protein 5.7 g/dl (6.3-8.2); eGFR > 60.00
[2025-06-20] MEDS: MIRALAX PO ×2 (09:01)
[2025-06-20] MEDS: ZOFRAN 4 MG IV (09:06)
[2025-06-20] MEDS: ATIVAN 0.5 MG PO ×2 (09:14→21:09)
--- NOTE | 2025-06-20 12:10 | W.PN.GI.CBS2 ---
Today's Communication / Plan
-
bowel regimen, scope sunday
Assessment / Plan
-
39-year-old female presenting with abdominal pain and constipation after having egg retrieval for IVF. This is an acute change for her. She also has some nausea. She underwent a CT scan here which showed fatty liver, ovoid collection of stool in
the descending colon and concentric wall thickening of the descending colon with pericolonic inflammation stranding surrounding the segment, no definitive colonic mass but short segment eccentric wall thickening, moderate amount of stool throughout
the colon. This could be related to inflammation but cannot exclude mass. I personally reviewed the images as well. Diff diagnosis: inflammation, malignancy, constipation, motility issue.
Xray today improvement in stool; nausea/pain improved
Recommendations:
- clear liquid diet will add ensure
- start miralax will do 34 g bid
- one more milk of molasses enema dose ordered now
- plan flex sig vs cscope on Sunday
- decrease ativan dose to q8h prn and stop morphine
D/w hospitalist and RN
Subjective
Subjective
Date of Service: June 20, 2025
pt very lethargic from ativan
XR with mild stool burden
pain, nausea improved
Objective
Data Reviewed
Laboratory Data:
Laboratory Results
06/20/25 07:43
06/20/25 07:43
Laboratory Results
Magnesium 2.1 mg/dl (1.6-2.3) 06/20/25 07:43
Total Bilirubin 0.6 mg/dl (0.2-1.3) 06/20/25 07:43
AST 12 U/L (14-36) L 06/20/25 07:43
ALT < 10 U/L (0-35) 06/20/25 07:43
Alkaline Phosphatase 50 U/L (38-126) 06/20/25 07:43
Vital Signs and I&O:
Vital Signs
Temp Pulse Resp BP Pulse Ox
97.9 F 71 16 132/80 99
06/20/25 08:12 06/20/25 08:12 06/20/25 08:12 06/20/25 08:12 06/20/25 09:00
I&O
06/19/25 06/20/25 06/21/25
06:59 06:59 06:59
Intake Total 2440 / 2440 850 / 850
Balance 2440 / 2440 850 / 850
Physical Exam
Physical Exam
GI: Non Distended and Non Tender
--- NOTE | 2025-06-20 12:31 | W.PN.HOSP.TC ---
Today's Communication/Plan
-
See plan
Assessment / Plan
Assessment / Plan
Physical Exam
General: Comfortable
Respiratory: Clear to Auscultation and Non Labored Respirations; Negative Accessory Resp Muscle Use
Cardiac: Regular Rhythm and S1/S2
GI: Soft, Nondistended, Normal Bowel Sounds and Tender (Left lower quadrant without rebound guarding rigidity)
Neuro: AO x 3
Psych: Calm
Assessment/Plan
Patient is a 39y F with PMH significant for migraines who presents to ED complaining of abdominal pain x several days.
Stercoral Colitis / Constipation
Concern for Infectious Colitis
- Stool collection too proximal for manual disimpaction.
- Bowel regimen consisting of senna , Miralax --> patient reported continued abdominal pain, no significant bowel movement despite laxatives, and imaging suggests possible colonic mass --> I am thinking patient needs
colonoscopy --> therefore consulted GI
- Clear Liquids Diet and Ensure
- Milk of Molasses enema+Clear Liquid diet+Increased Frequency of Miralax to TID-->if has BM, then plan for then initiate magnesium citrate and bowel prep--> then colonoscopy on 06/22/25
- Pain control, antiemetics
- Try to avoid opioid medications.
- Stop Ativan (which was given for nausea and anxiety) given drowsiness
- Improving clinical situation. Follow white count.
- Continue IV Zosyn for now
- Follow temperature curve and monitor for any new / worsening symptoms.
Drowsiness
- Stop Ativan and Morphone
Hypokalemia - repleted
Migraine Headaches
ADHD
- Stable. Patient has not taken Adderall in some time - takes only as needed during work.
DVT Prophylaxis: SCDs. Lovenox.
Code Status: Full
Anticipated Discharge: > 48 hours
Subjective/Interval History
-
Date of Service: June 20, 2025
Patient was seen and examined. She reported some nausea, still not feeling great.
Objective Data
-
Labs:
Laboratory Results
06/20/25
07:43
WBC 5.7
Hgb 11.6 L
Hct 33.8 L
Plt Count 274
Sodium 138
Potassium 4.1
Chloride 106
Carbon Dioxide 28
BUN 6 L
Creatinine 0.7
Glucose 89
Calcium 8.8
Total Bilirubin 0.6
AST 12 L
ALT < 10
Alkaline Phosphatase 50
Vital Signs:
Vital Signs
Temp Pulse Resp BP Pulse Ox
97.9 F 71 16 132/80 99
06/20/25 08:12 06/20/25 08:12 06/20/25 08:12 06/20/25 08:12 06/20/25 09:00
I&O
06/19/25 06/20/25 06/21/25
06:59 06:59 06:59
Intake Total 2440 / 2440 850 / 850
Balance 2440 / 2440 850 / 850
[2025-06-20] MEDS: MIRALAX 34 GRAMS PO (14:22)
[2025-06-20] MEDS: LOVENOX SC (15:22)
[2025-06-20 15:35] VITALS: BP 104/67
[2025-06-20] MEDS: SENOKOT 17.2 MG PO (21:09)
[2025-06-20 23:15] VITALS: BP 114/67
[2025-06-21] MEDS: ZOSYN 50 IV ×4 (02:10→20:36)
[2025-06-21] MEDS: TORADOL 10 MG IV ×4 (02:10→22:11)
[2025-06-21 07:00] VITALS: BP 116/83
[2025-06-21 07:57] LABS: ALT (SGPT) < 10 U/L (0-35); AST (SGOT) 14 U/L (14-36); Albumin 3.5 g/dl (3.5-5.0); Alkaline Phosphatase 38 U/L (38-126); Blood Urea Nitrogen 5 mg/dl (7-17); Calcium 9.2 mg/dl (8.4-10.2); Carbon Dioxide 24 mmol/L (22-30); Chloride 107 mmol/L (98-107); Estimated Creatinine Clearance 86 ml/min; Glucose 91 mg/dl (70-99); Magnesium 2.0 mg/dl (1.6-2.3); Potassium 4.0 mmol/L (3.5-5.1); Sodium 136 mmol/L (135-145); Total Protein 6.0 g/dl (6.3-8.2); eGFR > 60.00
[2025-06-21] MEDS: MIRALAX 34 GRAMS PO (08:11)
[2025-06-21] MEDS: LOVENOX SC (08:12)
[2025-06-21] MEDS: ATIVAN 0.5 MG PO ×2 (08:12→20:35)
--- NOTE | 2025-06-21 08:50 | PTCARENOTE ---
06/21- Patient and her Mom asking to speak with Telephone Assembler about allowing her downstairs to the main lobby to see her pet dogs. She is very anxious, and they serve as her therapy animals. Advised policy does not allow us to do this without a
Physician order, or a form filled out to bring pets up to the floor. She was very anxious and upset by this answer but asked if I could speak with the doctor. Notified Physician. As per Hospitalist, patient may go downstairs to see her pet.
Physician gave this RN verbal order. See Orders.
[2025-06-21 11:37] LABS: Hematocrit 32.0 % (37.0-47.0); Hemoglobin 11.3 g/dL (12.0-16.0); Mean Corp Hgb Conc. 35.3 g/dL (33.0-37.0); Mean Corpuscular Volume 93.8 fL (81.0-99.0); Platelet Count 274 10^3/uL (130-400); Red Cell Dist. Width 12.0 % (11.5-14.5)
[2025-06-21 15:00] VITALS: BP 110/82
--- NOTE | 2025-06-21 15:51 | CM ---
CM reviewed chart, plan for Colonoscopy tomorrow. CM will continue to follow for all discharge planning needs.
Plan; colonoscopy tomorrow
--- NOTE | 2025-06-21 16:47 | W.PN.GI.CBS2 ---
Today's Communication / Plan
-
scope tomorrow
Assessment / Plan
-
39-year-old female presenting with abdominal pain and constipation after having egg retrieval for IVF. This is an acute change for her. She also has some nausea. She underwent a CT scan here which showed fatty liver, ovoid collection of stool in
the descending colon and concentric wall thickening of the descending colon with pericolonic inflammation stranding surrounding the segment, no definitive colonic mass but short segment eccentric wall thickening, moderate amount of stool throughout
the colon. This could be related to inflammation but cannot exclude mass. I personally reviewed the images as well. Diff diagnosis: inflammation, malignancy, constipation, motility issue.
Xray today improvement in stool; nausea/pain improved
Recommendations:
- clear liquid diet will add ensure
- miralax bowel prep tonight will give zofran before (no reglan in case there is an obstruction)
- plan flex sig vs cscope on Sunday - if patient cannot tolerate po bowel prep will do tap water enema and do flex sig
D/w parents and patient
D/w hospitalist and RN
Reviewed importance of inpatient cscope given acute change in bowel habits in a 39 [address] needs direct visualization of this area before discharge
Subjective
Subjective
Date of Service: June 21, 2025
still some pain but improved
tolerating clear liquid diet
could not tolerate mag citrate
Objective
Data Reviewed
Laboratory Data:
Laboratory Results
06/21/25 11:09
06/21/25 07:00
Laboratory Results
Magnesium 2.0 mg/dl (1.6-2.3) 06/21/25 07:00
Total Bilirubin 0.6 mg/dl (0.2-1.3) 06/21/25 07:00
AST 14 U/L (14-36) 06/21/25 07:00
ALT < 10 U/L (0-35) 06/21/25 07:00
Alkaline Phosphatase 38 U/L (38-126) 06/21/25 07:00
Vital Signs and I&O:
Vital Signs
Temp Pulse Resp BP Pulse Ox
98.0 F 76 16 110/82 98
06/21/25 15:00 06/21/25 15:00 06/21/25 15:00 06/21/25 15:00 06/21/25 15:00
I&O
06/20/25 06/21/25 06/22/25
06:59 06:59 06:59
Intake Total 850 / 850 1300 / 1300
Balance 850 / 850 1300 / 1300
Physical Exam
Physical Exam
GI: Non Distended and Tender
[2025-06-21] MEDS: ZOFRAN 4 MG IV (17:38)
--- NOTE | 2025-06-21 18:15 | W.PN.HOSP.TC ---
Today's Communication/Plan
-
NPO after midnight for colonoscopy tomorrow
Assessment / Plan
Assessment / Plan
Physical Exam
General: Comfortable
Respiratory: Clear to Auscultation Bilaterally
Cardiac: Regular Rhythm and S1/S2
GI: Soft, Nondistended, Normal Bowel Sounds and Tender (Left lower quadrant without rebound guarding rigidity)
Neuro: AO x 3
Psych: Calm
Assessment/Plan
Patient is a 39y F with PMH significant for migraines who presents to ED complaining of abdominal pain x several days.
Stercoral Colitis / Constipation
Concern for Infectious Colitis
- Stool collection too proximal for manual disimpaction.
- Bowel regimen consisting of senna , Miralax --> patient reported continued abdominal pain, no significant bowel movement despite laxatives, and imaging suggests possible colonic mass --> I am thinking patient needs
colonoscopy --> therefore consulted GI
- Clear Liquids Diet and Ensure
- Miralax bowel prep tonight and Zofran before (no reglan in case there is an obstruction)--> NPO after midnight for colonoscopy on 06/22/25
- Pain control, antiemetics
- Try to avoid opioid medications.
- Previously stopped Ativan (which was given for nausea and anxiety) given drowsiness
- Continue IV Zosyn for now
- Follow temperature curve and monitor for any new / worsening symptoms.
Drowsiness
- Previously stopped Ativan and Morphine
Hypokalemia - repleted
Migraine Headaches
ADHD
- Stable. Patient has not taken Adderall in some time - takes only as needed during work.
DVT Prophylaxis: SCDs. Lovenox.
Code Status: Full Code
Anticipated Discharge: Within 24 hours
Subjective/Interval History
-
Date of Service: June 21, 2025
Patient was seen and examined. In the morning she reported no bowel movement and feeling not well, but later in the day her appetite improved and she had bowel movement.
Objective Data
-
Labs:
Laboratory Results
06/21/25 06/21/25
07:00 11:09
WBC Cancelled 7.4
Hgb Cancelled 11.3 L
Hct Cancelled 32.0 L
Plt Count Cancelled 274
Sodium 136
Potassium 4.0
Chloride 107
Carbon Dioxide 24
BUN 5 L
Creatinine 0.6
Glucose 91
Calcium 9.2
Total Bilirubin 0.6
AST 14
ALT < 10
Alkaline Phosphatase 38
Vital Signs:
Vital Signs
Temp Pulse Resp BP Pulse Ox
98.0 F 76 16 110/82 98
06/21/25 15:00 06/21/25 15:00 06/21/25 15:00 06/21/25 15:00 06/21/25 15:00
I&O
06/20/25 06/21/25 06/22/25
06:59 06:59 06:59
Intake Total 850 / 850 1300 / 1300
Balance 850 / 850 1300 / 1300
[2025-06-21] MEDS: GAVILAX 238 GM PO (18:27)
[2025-06-21] MEDS: SENOKOT 17.2 MG PO (20:36)
[2025-06-22] VITALS (9 sets, daily range): BP systolic 12–143; BP diastolic 50–96; BMI 20.9
[2025-06-22] MEDS: ZOSYN 50 IV ×3 (01:20→14:09)
[2025-06-22] MEDS: ZOFRAN 4 MG IV (02:32)
[2025-06-22] MEDS: ATIVAN 0.5 MG PO ×3 (05:18→22:23)
[2025-06-22] MEDS: MIRALAX 119 GRAMS PO (05:18)
[2025-06-22 06:44] LABS: Hematocrit 34.5 % (37.0-47.0); Hemoglobin 12.2 g/dL (12.0-16.0); Mean Corp Hgb Conc. 35.4 g/dL (33.0-37.0); Mean Corpuscular Volume 94.0 fL (81.0-99.0); Platelet Count 308 10^3/uL (130-400); Red Cell Dist. Width 12.0 % (11.5-14.5)
[2025-06-22 07:00] LABS: ALT (SGPT) 12 U/L (0-35); AST (SGOT) 17 U/L (14-36); Albumin 3.6 g/dl (3.5-5.0); Alkaline Phosphatase 52 U/L (38-126); Blood Urea Nitrogen 4 mg/dl (7-17); Calcium 9.2 mg/dl (8.4-10.2); Carbon Dioxide 28 mmol/L (22-30); Chloride 104 mmol/L (98-107); Estimated Creatinine Clearance 74 ml/min; Glucose 88 mg/dl (70-99); Potassium 4.2 mmol/L (3.5-5.1); Sodium 137 mmol/L (135-145); Total Protein 6.0 g/dl (6.3-8.2); eGFR > 60.00
[2025-06-22] MEDS: MIRALAX PO (07:57)
[2025-06-22] MEDS: LOVENOX SC (07:58)
[2025-06-22] MEDS: TORADOL 10 MG IV (09:33)
--- NOTE | 2025-06-22 10:16 | W.PN.HOSP.TC ---
Today's Communication/Plan
-
See plan
Assessment / Plan
Assessment / Plan
Physical Exam
General: Comfortable
Respiratory: Clear to Auscultation Bilaterally
Cardiac: Regular Rhythm and S1/S2
GI: Soft, Nondistended, Normal Bowel Sounds and Tender (Left lower quadrant without rebound guarding rigidity)
Neuro: AO x 3
Psych: Calm
Assessment/Plan
Patient is a 39y F with PMH significant for migraines who presents to ED complaining of abdominal pain x several days.
Stercoral Colitis / Constipation
Concern for Infectious Colitis
- Stool collection too proximal for manual disimpaction.
- Bowel regimen consisting of senna , Miralax --> patient reported continued abdominal pain, no significant bowel movement despite laxatives, and imaging suggests possible colonic mass --> I am thinking patient needs
colonoscopy --> therefore consulted GI
- Miralax bowel prep tonight and Zofran before (no reglan in case there is an obstruction)--> Preparation of the colon was poor; A few ulcers in the sigmoid colon - Biopsied; Internal hemorrhoids.
- Continue Clear Liquids Diet but patient will need to be NPO after midnight for gastrograffin enema
- Colorectal surgery was consulted given the above
- Pain control, antiemetics
- Try to avoid opioid medications.
- Previously stopped Ativan (which was given for nausea and anxiety) given drowsiness
- Follow temperature curve and monitor for any new / worsening symptoms
Hypokalemia - repleted
Migraine Headaches
ADHD
- Stable. Patient has not taken Adderall in some time - takes only as needed during work.
DVT Prophylaxis: SCDs. Lovenox.
Code Status: Full Code
Anticipated Discharge: 24 - 48 hours
Subjective/Interval History
-
Date of Service: June 22, 2025
Patient was seen and examined. She was doing okay.
Objective Data
-
Labs:
Laboratory Results
06/22/25
05:49
WBC 8.3
Hgb 12.2
Hct 34.5 L
Plt Count 308
Sodium 137
Potassium 4.2
Chloride 104
Carbon Dioxide 28
BUN 4 L
Creatinine 0.7
Glucose 88
Calcium 9.2
Total Bilirubin 0.5
AST 17
ALT 12
Alkaline Phosphatase 52
Vital Signs:
Vital Signs
Temp Pulse Resp BP Pulse Ox
98.2 F 71 16 120/75 100
06/22/25 07:39 06/22/25 07:39 06/22/25 07:39 06/22/25 07:39 06/22/25 08:00
I&O
06/21/25 06/22/25 06/23/25
06:59 06:59 06:59
Intake Total 1300 / 1300 780 / 780
Balance 1300 / 1300 780 / 780
--- NOTE | 2025-06-22 11:12 | CM ---
CM reviewed chart, patient for colonoscopy today. Will follow for all discharge planning needs.
Plan; home no needs anticipated
--- NOTE | 2025-06-22 12:22 | CON.CRS ---
Consultation
-
Date/Time Consultation Requested: 06/22/2025, 12:13
Date/Time Consultation Performed: 06/22/2025, 12:13
Requesting Provider: Yancy Crespo MD
Performing Provider: Damian Murphy MD
Reason for Consultation: sterocoral colitis
Medical History
-
Chief Complaint: abdominal pain
History of Present Illness:
39-year-old female presents to [facility] on 06/17/2025 complaining of abdominal pain and nausea. She underwent an egg harvest on 06/11/2025. 3 days later she had lower abdominal pain with nausea and constipation. In the ER she underwent an
ultrasound which was negative for any acute findings. She continued to develop worsening abdominal pain, nausea, and nonbloody vomiting. A CT was subsequently ordered which showed sterile coral colitis of the descending colon with apparent
eccentric wall thickening of the colon just distal to the collection of the stool. Mass cannot be excluded. Her last bowel movement was on 06/20/2025 per nursing records and was soft and loose. Prior to the egg retrieval, her bowel movements were
regular and unchanged. Given the CT findings, she was seen in consultation by gastroenterology. Plan was for a colonoscopy to exclude mass. She was given a MiraLAX bowel prep as well as enemas yesterday. Apparently no bowel movement was produced
with the prep. I was called into the colonoscopy today by Dr. Mtz to observe. There was a rock hard stool that was impossible to reverse or remove despite multiple attempts. There was also some ulceration surrounding the stool itself which
was biopsied. Given this finding, we have been consulted for surgical opinion.
Past Medical History
Past Medical History: Other (ADHD, migraines)
Past Surgical History: Hernia Repair and Other (Foot surgery, recent egg retrieval on 06/11/2025.)
Social History
Tobacco: Non-Smoker
Alcohol: Occasional
Drug: None
Family History
Family History: Reviewed & Not Pertinent
Allergies / Home Medications
Allergy/AdvReac Type Severity Reaction Status Date / Time
kiwi Allergy Anaphylaxis Verified 06/17/25 07:02
latex Allergy Rash Verified 06/17/25 07:02
�Medication �Instructions �Recorded �Confirmed �Type
dextroamphetamine-amphetamine 20 30 mg PO TID Mental Health/Anxiety 12/06/18 06/17/25 History
mg tablet (Adderall)
cetirizine 10 mg tablet 10 mg PO DAILY Allergies 06/17/25 06/18/25 History
Review of Systems
-
History Source: Patient
Abdomen/GI: Abdominal Pain, Nausea and Constipated
A 10 point review of systems was completed, and was negative except as per HPI.
Physical Exam
Vital Signs
Temp 98.2 F 06/22/25 07:39
Pulse 71 06/22/25 07:39
Resp Rate 16 06/22/25 07:39
Blood pressure 120/75 06/22/25 07:39
SaO2 100 06/22/25 08:00
Body Mass Index (BMI) 20.9
Lab Results / Allergies
06/22/25 05:49
06/22/25 05:49
WBC 8.3 10^3/uL (4.8-10.8) 06/22/25 05:49
Hgb 12.2 g/dL (12.0-16.0) 06/22/25 05:49
Hct 34.5 % (37.0-47.0) L 06/22/25 05:49
Plt Count 308 10^3/uL (130-400) 06/22/25 05:49
Abs Immat Gran (auto) 0.0 10^3/uL (0-0.05) 06/20/25 07:43
Neutrophils % 59.9 % (42.2-75.2) 06/20/25 07:43
Allergy/AdvReac Type Severity Reaction Status Date / Time
kiwi Allergy Anaphylaxis Verified 06/17/25 07:02
latex Allergy Rash Verified 06/17/25 07:02
Physical Exam
General: Well Developed, Well Nourished and No Apparent Distress
GI: Soft, Non Distended and Tender (Mild left-sided)
Skin: Warm and Dry
Neuro: AO x 3
Data Reviewed
-
Radiology: Image Personally Visualized and interpreted and Report Reviewed by me
CT Scan: Image Personally Visualized and interpreted and Report Reviewed by me
Labs: Labs Reviewed by me and Discussed with Physician
Old Records: Reviewed
Assessment / Plan
-
Assessment: 39-year-old female status post recent egg retrieval who developed subsequent constipation and abdominal pain with associated nausea, presented to [facility] on 06/17/2025 and found to have stercoral colitis in the descending colon with
eccentric wall thickening of the colon distal to the stool, unable to complete colonoscopy due to large fecal burden
Plan:
- Recommend Gastrografin enema for both therapeutic and diagnostic purposes
- Await biopsy performed on ulcerated area during colonoscopy
- Enemas as needed
- Remain n.p.o.
- Plans to follow after Gastrografin enema is performed
--- NOTE | 2025-06-22 13:00 | PTCARENOTE ---
06/22- Patient returned from Colonoscopy anxious and tearful. Lethargic but AAOX3. She denies pain right now but states she's hungry and wants to eat. Advised we must wait until further orders for imaging to advance diet from NPO. She became tearful
again, mildly verbally hostile but verbalized understanding.
--- NOTE | 2025-06-22 14:10 | PTCARENOTE ---
06/22- AAOX3, no longer lethargic or drowsy. Patient is now anxious, agitated, tearful, standing up to go to bathroom and wants to know her plan of care. Advised I can contact the Physician to find out next steps. Therapeutic conversation. Patient
able to be calmed and sat back in bed. Notified Physician.
--- NOTE | 2025-06-22 14:22 | W.PN.UPDATE ---
Update Note
Progress Note Update
dw rads cant do gastrografin until am
enemas today
no po constipation meds
stopped toradol as well given ulcerations in colon
--- NOTE | 2025-06-22 16:47 | PTCARENOTE ---
06/22- Mother of patient is escalated stating, 'I've been waiting for you for an explanation of her plan of care for over an hour. No one has been in to speak with us. We have no idea what is going on.' Attempted to calmly de-escalate patient's
mother. Patient herself is sleeping at this time. Advised that this RN notified both GI and Hospitalist physicians. Validated patient's mother's concerns but advised I'm doing everything I can. Advised on plan of care as I see it in the orders
at this time. She verbalized understanding. Appeared calmed down.
[2025-06-22] MEDS: TYLENOL 650 MG PO (22:26)
[2025-06-22] MEDS: ULTRAM 25 MG PO (23:56)
[2025-06-23 07:23] LABS: Hematocrit 34.5 % (37.0-47.0); Hemoglobin 12.1 g/dL (12.0-16.0); Mean Corp Hgb Conc. 35.1 g/dL (33.0-37.0); Mean Corpuscular Volume 93.8 fL (81.0-99.0); Platelet Count 310 10^3/uL (130-400); Red Cell Dist. Width 11.9 % (11.5-14.5)
[2025-06-23] MEDS: TYLENOL 650 MG PO ×2 (07:48→19:40)
[2025-06-23 07:50] VITALS: BP 136/83
[2025-06-23 07:50] LABS: Blood Urea Nitrogen 4 mg/dl (7-17); Calcium 9.0 mg/dl (8.4-10.2); Carbon Dioxide 26 mmol/L (22-30); Chloride 104 mmol/L (98-107); Estimated Creatinine Clearance 74 ml/min; Glucose 82 mg/dl (70-99); Magnesium 1.9 mg/dl (1.6-2.3); Potassium 3.9 mmol/L (3.5-5.1); Sodium 135 mmol/L (135-145); eGFR > 60.00
[2025-06-23] MEDS: ATIVAN 0.5 MG PO ×2 (07:50→17:22)
--- NOTE | 2025-06-23 08:00 | PTCARENOTE ---
Patient anxious. Ativan given per patient request. Patient tearful most of day, family at bedside and providing support.
--- NOTE | 2025-06-23 09:57 | W.PN.GI.CBS2 ---
Addendum entered and electronically signed by Mitzy Herzog MD 06/23/25 13:23:
I saw and examined the patient.
The BOILER/CHILLER OPERATOR or PA's note was reviewed and I agree with the note.
Comment: Patient complains of left-sided abdominal discomfort. Some minimal flatus but no bowel movement.
She did report emesis last night with brown material, no nausea or vomiting this morning.
She did have the barium enema which showed partial obstruction at the level of mid descending colon which appears to be secondary to fecal impaction, filling defect measures 6.2 x 4.8 cm, small amount of contrast material passes proximal to this
level to the splenic flexure.
As per colorectal surgery, if Gastrografin enema does not produce bowel movement with disimpaction, there is a plan for her to go to the operating room this afternoon.
Await colorectal surgery input.
Will follow
Original Note:
Today's Communication / Plan
-
Await gastrograffin enema
CRS following for possible OR if needed.
Assessment / Plan
-
39-year-old female presenting with abdominal pain and constipation after having egg retrieval for IVF. This is an acute change for her. She also has some nausea. She underwent a CT scan here which showed fatty liver, ovoid collection of stool in
the descending colon and concentric wall thickening of the descending colon with pericolonic inflammation stranding surrounding the segment, no definitive colonic mass but short segment eccentric wall thickening, moderate amount of stool throughout
the colon. This could be related to inflammation but cannot exclude mass. I personally reviewed the images as well. Diff diagnosis: inflammation, malignancy, constipation, motility issue.
Colonoscopy attempted 06/22/2025:
- Preparation of the colon was poor.
- Stool in the sigmoid colon.
- A few ulcers in the sigmoid colon. Biopsied.
- Internal hemorrhoids.
Impression:
Left sided abd pain
Abnormal CT scan with 5.5 x 4.3 x 6.7 fecal obstruction/concentric wall thickening in descending colon
Nausea/Vomiting
Recommendations:
- NPO
-Gastrografin enema this a.m.
-Await pathology from Sigmoid bx
-Patient being followed by colorectal surgery
Subjective
Subjective
Date of Service: June 23, 2025
Patient with left-sided abdominal discomfort this a.m. Patient with brown emesis last evening. Patient going for Gastrografin enema this a.m. Has been seen by colorectal surgery, discussed with Dr. Adames.
Objective
Data Reviewed
Laboratory Data:
Laboratory Results
06/23/25 06:55
06/23/25 06:55
Laboratory Results
Magnesium 1.9 mg/dl (1.6-2.3) 06/23/25 06:55
Total Bilirubin 0.5 mg/dl (0.2-1.3) 06/22/25 05:49
AST 17 U/L (14-36) 06/22/25 05:49
ALT 12 U/L (0-35) 06/22/25 05:49
Alkaline Phosphatase 52 U/L (38-126) 06/22/25 05:49
Vital Signs and I&O:
Vital Signs
Temp Pulse Resp BP Pulse Ox
98.1 F 70 16 136/83 99
06/23/25 07:50 06/23/25 07:50 06/23/25 07:50 06/23/25 07:50 06/23/25 07:50
I&O
06/22/25 06/23/25 06/24/25
06:59 06:59 06:59
Intake Total 780 / 780 0 / 0
Balance 780 / 780 0 / 0
Physical Exam
Physical Exam
HEENT: Anicteric
Cardiology: Normal Sinus Rhythm
Pulmonary: Clear
GI: Soft, Non Distended, Tender (Left-sided abdominal discomfort upon palpation) and Normal Bowel Sounds
Extremities: No Edema
Neuro: Non Focal
--- NOTE | 2025-06-23 13:06 | WOUNDNOTE ---
[facility] RN NOTE: Patient visited for left sided ostomy siting. Patient has a small abdomen with minimal folds noted sitting, laying and standing. The rectus abdominal muscle was located and care was taken to avoid creases and folds. Patient tearful
during visit, and support was offered. Patient and family made aware that surgeon will make final determination of stoma placement if surgery is needed. Will follow up with patient if stoma is created.
--- NOTE | 2025-06-23 13:31 | W.PN.HOSP.TC ---
Today's Communication/Plan
-
See plan
Assessment / Plan
Assessment / Plan
Physical Exam
General: Comfortable
Respiratory: Clear to Auscultation Bilaterally
Cardiac: Regular Rhythm and S1/S2
GI: Soft, Nondistended, Normal Bowel Sounds and Tender (Left lower quadrant without rebound guarding rigidity)
Neuro: AO x 3
Psych: Calm
Assessment/Plan
Patient is a 39y F with PMH significant for migraines who presents to ED complaining of abdominal pain x several days.
Stercoral Colitis / Constipation
Concern for Infectious Colitis
Fecal Impaction Ulcers in Sigmoid Colon
- Significantly impacted stools with ulcers from stool in colon -- bowel regimen and prep did not work and worsened patient's symptoms
- Stool collection was too proximal for manual disimpaction.
- Bowel regimen consisting of senna , Miralax --> patient reported continued abdominal pain, no significant bowel movement despite laxatives, and imaging suggests possible colonic mass --> I am thinking patient needs
colonoscopy --> therefore consulted GI
- Miralax bowel prep tonight and Zofran before (no reglan in case there is an obstruction)--> Colonoscopy preparation of the colon was poor; A few ulcers in the sigmoid colon - Biopsied; Internal hemorrhoids.
- Gastrograffin enema today showed a partial obstruction. Hopefully she can pass it and then won't need OR. Clear Liquids Diet and NPO after midnight.
- Colorectal surgery appreciated
- Pain control, antiemetics
- Try to avoid opioid medications.
- Previously stopped Ativan (which was given for nausea and anxiety) given drowsiness
- Follow temperature curve and monitor for any new / worsening symptoms
Hypokalemia - repleted
Migraine Headaches
ADHD
- Stable. Patient has not taken Adderall in some time - takes only as needed during work.
DVT Prophylaxis: SCDs. Lovenox.
Code Status: Full Code
Anticipated Discharge: 24 - 48 hours
Subjective/Interval History
-
Date of Service: June 23, 2025
Patient was seen and examined. She reported continuing abdominal discomfort and on and off nausea.
Objective Data
-
Labs:
Laboratory Results
06/23/25
06:55
WBC 6.1
Hgb 12.1
Hct 34.5 L
Plt Count 310
Sodium 135
Potassium 3.9
Chloride 104
Carbon Dioxide 26
BUN 4 L
Creatinine 0.7
Glucose 82
Calcium 9.0
Vital Signs:
Vital Signs
Temp Pulse Resp BP Pulse Ox
98.1 F 70 16 136/83 99
06/23/25 07:50 06/23/25 07:50 06/23/25 07:50 06/23/25 07:50 06/23/25 07:50
I&O
06/22/25 06/23/25 06/24/25
06:59 06:59 06:59
Intake Total 780 / 780 0 / 0
Balance 780 / 780 0 / 0
--- NOTE | 2025-06-23 16:10 | PTCARENOTE ---
Patient tolerating clear liquids, no nausea or vomiting. Patient ambulating in halls frequently. Patient ambulated to lobby with her dad to visit with her dog. Patient, spouse and mother updates with plan of care. All questions addressed.
[2025-06-23 17:06] VITALS: BP 130/87
[2025-06-23] MEDS: LOVENOX 40 MG SC (17:23)
[2025-06-23 23:42] VITALS: BP 107/55
[2025-06-24] VITALS (12 sets, daily range): BP systolic 108–140; BP diastolic 73–94
[2025-06-24] MEDS: ATIVAN 0.5 MG PO ×2 (01:27→22:38)
[2025-06-24] MEDS: TYLENOL 650 MG PO (06:23)
[2025-06-24] MEDS: ZOFRAN 4 MG IV (06:30)
--- NOTE | 2025-06-24 07:15 | PTCARENOTE ---
pt c/o abdominal pain overnite (only Tylenol ordered) No BM reported. GI and colorectal notified
[2025-06-24 08:24] LABS: Hematocrit 35.7 % (37.0-47.0); Hemoglobin 12.8 g/dL (12.0-16.0); Mean Corp Hgb Conc. 35.9 g/dL (33.0-37.0); Mean Corpuscular Volume 92.5 fL (81.0-99.0); Platelet Count 346 10^3/uL (130-400); Red Cell Dist. Width 11.8 % (11.5-14.5)
--- NOTE | 2025-06-24 08:35 | W.PN.CRS1 ---
Today's Communication / Plan
-
OR today
Assessment/Plan
-
Assessment: 39-year-old female status post recent egg retrieval who developed subsequent constipation and abdominal pain with associated nausea, presented to [facility] on 06/17/2025 and found to have stercoral colitis in the descending colon with
eccentric wall thickening of the colon distal to the stool, unable to complete colonoscopy due to large fecal burden
Worsening pain, mild flatus, 1 small bm
Plan:
- OR today for sigmoidectomy with possible Hartmanns
- Await biopsy performed on ulcerated area during colonoscopy
- Dilaudid x 1 now
- Remain n.p.o.
- Pre-op orders in place. Discussed with patient and father and mother on speaker phone at bedside.
Subjective Data
Subjective Data
Date of Service: June 24, 2025
Patient states she is in worsening pain. She vomited last night. She had one minor bowel movement last night after the GE.
Objective Data
-
Vital Signs
Temp Pulse Resp BP Pulse Ox
98.4 F 81 18 107/55 100
06/23/25 23:42 06/23/25 23:42 06/23/25 23:42 06/23/25 23:42 06/23/25 17:06
Intake & Output
06/23/25 06/24/25 06/25/25
06:59 06:59 06:59
Intake Total 0 / 0 120 / 120 120 / 120
Balance 0 / 0 120 / 120 120 / 120
Intake:
Oral fluids 0 / 0 120 / 120 120 / 120
Other:
Number of approximated MODERATE 2 2 1
amounts of urine
Lab Results
06/24/25 08:17
Physical Exam
-
General: Well Developed (in pain)
Abdomen: Soft and Tender (moderate/severe LLQ)
Skin: Warm and Dry
[2025-06-24 08:42] LABS: Blood Urea Nitrogen 4 mg/dl (7-17); Calcium 9.1 mg/dl (8.4-10.2); Carbon Dioxide 25 mmol/L (22-30); Chloride 103 mmol/L (98-107); Estimated Creatinine Clearance 86 ml/min; Glucose 96 mg/dl (70-99); Magnesium 1.9 mg/dl (1.6-2.3); Potassium 4.2 mmol/L (3.5-5.1); Sodium 135 mmol/L (135-145); eGFR > 60.00
[2025-06-24] MEDS: NORMOSOL-R/PLASMALYTE-A 1000 IV ×2 (08:49→23:38)
[2025-06-24] MEDS: DILAUDID 1 MG IV (08:50)
[2025-06-24 09:00] LABS: INR 1.12; PT 14.7 Sec (11.4-14.6)
[2025-06-24 09:02] LABS: APTT 35.1 Sec (23.4-35.0)
--- NOTE | 2025-06-24 11:01 | PTCARENOTE ---
Pt received 1 mg IV Dilaudid at 0900 with +relief. IVF started in right hand . Pt clin application specialist for OR. NPO maintained.
--- NOTE | 2025-06-24 11:02 | PTCARENOTE ---
Report given to OR, completed bed change , CHG wipes and SCDs applied. Antibiotic to be sent to preop area as per pharmacy. Pt calm and denied any questions . Family at bedside, accompanying to OR.
--- NOTE | 2025-06-24 11:18 | W.PN.GI.CBS2 ---
Addendum entered and electronically signed by Mitzy Herzog MD 06/24/25 14:30:
Biopsies from the flexible sigmoidoscopy negative for any inflammation.
Patient going to the OR for sigmoidectomy with possible Wadsworth's procedure.
No further GI testing. Will sign off. Please call back if needed
Original Note:
Today's Communication / Plan
-
As per colorectal surgery
Assessment / Plan
-
39-year-old female presenting with abdominal pain and constipation after having egg retrieval for IVF. This is an acute change for her. She also has some nausea. She underwent a CT scan here which showed fatty liver, ovoid collection of stool in
the descending colon and concentric wall thickening of the descending colon with pericolonic inflammation stranding surrounding the segment, no definitive colonic mass but short segment eccentric wall thickening, moderate amount of stool throughout
the colon. This could be related to inflammation but cannot exclude mass. I personally reviewed the images as well. Diff diagnosis: inflammation, malignancy, constipation, motility issue.
Colonoscopy attempted 06/22/2025:
- Preparation of the colon was poor.
- Stool in the sigmoid colon.
- A few ulcers in the sigmoid colon. Biopsied. Pathology histologically unremarkable colonic mucosa. Negative for colitis.
- Internal hemorrhoids.
Impression:
Left sided abd pain
Abnormal CT scan with 5.5 x 4.3 x 6.7 fecal obstruction/concentric wall thickening in descending colon
Nausea/Vomiting
Gastrografin enema performed-> Partial obstruction at the level of the mid descending colon, which appears to be secondary to a fecal impaction in correlation with the recent CT. The filling defect measures approximately 6.2 x 4.8 cm. A small amount
of contrast material passes proximal to this level to the splenic flexure.
Recommendations:
- Patient is n.p.o.
-Going to the OR with colorectal surgery today
Subjective
Subjective
Date of Service: June 24, 2025
Patient with Gastrografin/Omnipaque enema yesterday for fecal impaction/descending colon partial obstruction. She states that she had vomiting afterwards last evening. Had 1 small bowel movement. Had worsening abdominal discomfort. Is going to
the OR today with colorectal surgery. Patient currently comfortable after receiving Dilaudid. Pathology from sigmoid colon ulcer biopsy is histologically unremarkable colonic mucosa. Negative for colitis.
Objective
Data Reviewed
Laboratory Data:
Laboratory Results
06/24/25 08:17
06/24/25 08:17
Laboratory Results
PT 14.7 Sec (11.4-14.6) H 06/24/25 08:17
INR 1.12 06/24/25 08:17
APTT 35.1 Sec (23.4-35.0) H 06/24/25 08:17
Magnesium 1.9 mg/dl (1.6-2.3) 06/24/25 08:17
Total Bilirubin 0.5 mg/dl (0.2-1.3) 06/22/25 05:49
AST 17 U/L (14-36) 06/22/25 05:49
ALT 12 U/L (0-35) 06/22/25 05:49
Alkaline Phosphatase 52 U/L (38-126) 06/22/25 05:49
Vital Signs and I&O:
Vital Signs
Temp Pulse Resp BP Pulse Ox
98.2 F 86 22 124/76 97
06/24/25 07:00 06/24/25 07:00 06/24/25 07:00 06/24/25 07:00 06/24/25 07:00
I&O
06/23/25 06/24/25 06/25/25
06:59 06:59 06:59
Intake Total 0 / 0 120 / 120 120 / 120
Balance 0 / 0 120 / 120 120 / 120
Physical Exam
Physical Exam
HEENT: Anicteric
Cardiology: Normal Sinus Rhythm
Pulmonary: Clear
GI: Soft, Non Distended, Non Tender and Normal Bowel Sounds
Extremities: No Edema
Neuro: Non Focal
--- NOTE | 2025-06-24 11:33 | W.PN.UPDATE ---
Update Note
Progress Note Update
She wishes to proceed with surgery and there is available time in the OR soon. I am available to perform the surgery and introduced myself to the patient, her at the bedside and her mother via telephone. I personally reviewed the medical
record and imaging studies. She has moderate left-sided tenderness without peritoneal signs. She had a very small bowel movement after the contrast enema and nothing since. She vomited last night. She remains afebrile with normal vital signs. Her
WBC remains normal.
I again reviewed the treatment options including continued nonoperative management versus surgery, with the risks and benefits of each. Without surgery there is a risk of perforation. Surgery would involve general anesthesia, laparotomy with
possible propagation of the fecal mass, possible bowel resection with or without an ostomy (colostomy and ileostomy explained). I will also have a colonoscope in the room. Risks include, but are not limited to, bleeding, infection adhesions,
recurrence, hernias, anastomotic leak if one is created, stoma complications if one is created, DVT, injury to other structures, positioning injuries, cardiopulmonary complications, and the risks of anesthesia. I also reviewed the typical recovery
in and out of the hospital, and the functional results. All questions answered and arrangements are in progress for the OR.
--- NOTE | 2025-06-24 12:51 | CM ---
Case Management continues to follow. Pt is in the OR for laparotomy with possible propagation of the fecal mass, possible bowel resection with or without an ostomy.
Watch for needs post-surgery with potential ostomy.
[2025-06-24] MEDS: DILAUDID 0.5 MG IV ×2 (15:03→23:38)
--- NOTE | 2025-06-24 15:20 | W.PN.HOSP.TC ---
Today's Communication/Plan
-
for OR today
Assessment / Plan
Assessment / Plan
Stercoral Colitis / Constipation
Concern for Infectious Colitis
Fecal Impaction Ulcers in Sigmoid Colon
- Significantly impacted stools with ulcers from stool in colon -- bowel regimen and prep did not work and worsened patient's symptoms
- Stool collection was too proximal for manual disimpaction.
- Failed oral and rectal laxative regimen to relieve constipation.
- Colonoscopy preparation of the colon was poor; A few ulcers in the sigmoid colon - Biopsied; Internal hemorrhoids.
- Gastrografin enema showed a partial obstruction at mid descending colon level.
- Colorectal surgery took patient to the OR today
Hypokalemia - repleted
Migraine Headaches
ADHD
- Stable. Patient has not taken Adderall in some time - takes only as needed during work.
DVT Prophylaxis: SCDs. Lovenox.
Code Status: Full Code
Anticipated Discharge: > 48 hours
Subjective/Interval History
-
Date of Service: June 24, 2025
continues to be nauseous and had vomiting episode last night
no abd pain
remains afebrile
Objective Data
-
Labs:
Laboratory Results
06/24/25
08:17
WBC 5.4
Hgb 12.8
Hct 35.7 L
Plt Count 346
PT 14.7 H
INR 1.12
APTT 35.1 H
Sodium 135
Potassium 4.2
Chloride 103
Carbon Dioxide 25
BUN 4 L
Creatinine 0.6
Glucose 96
Calcium 9.1
Vital Signs:
Vital Signs
Temp Pulse Resp BP Pulse Ox
97.0 F 90 7 122/77 100
06/24/25 14:30 06/24/25 15:15 06/24/25 15:15 06/24/25 15:00 06/24/25 15:15
I&O
06/23/25 06/24/25 06/25/25
06:59 06:59 06:59
Intake Total 0 / 0 120 / 120 120 / 120
Balance 0 / 0 120 / 120 120 / 120
Review of Systems
-
Respiratory: Reports No Symptoms
Cardiac: Reports No Symptoms
Abdomen/GI: Reports Abdominal Pain, Nausea and Vomiting
Physical Exam
-
General: Negative Appears in Distress
HEENT: Negative Oxygen
Neuro: Awake, Alert and Oriented
Psych: Calm
[2025-06-24] MEDS: TORADOL 15 MG IV ×2 (15:25→21:38)
--- NOTE | 2025-06-24 16:10 | PTCARENOTE ---
received patient from pacu. pt drowsy, arouses to voice. pt sleeping but when awake reports abdominal incisional pain. aceves draining clear yellow urine. dressing intact with small amount of old drainage. pt updated on plan of care.
[2025-06-24] MEDS: LOVENOX SC (17:41)
[2025-06-25 03:15] VITALS: BP 133/81
[2025-06-25] MEDS: DILAUDID 0.5 MG IV ×3 (04:54→15:20)
[2025-06-25 06:37] LABS: Hematocrit 35.8 % (37.0-47.0); Hemoglobin 12.3 g/dL (12.0-16.0); Mean Corp Hgb Conc. 34.4 g/dL (33.0-37.0); Mean Corpuscular Volume 94.5 fL (81.0-99.0); Platelet Count 384 10^3/uL (130-400); Red Cell Dist. Width 11.9 % (11.5-14.5)
[2025-06-25 07:02] LABS: Blood Urea Nitrogen 3 mg/dl (7-17); Calcium 8.5 mg/dl (8.4-10.2); Carbon Dioxide 27 mmol/L (22-30); Chloride 100 mmol/L (98-107); Estimated Creatinine Clearance 86 ml/min; Glucose 103 mg/dl (70-99); Potassium 4.6 mmol/L (3.5-5.1); Sodium 134 mmol/L (135-145); eGFR > 60.00
[2025-06-25 07:35] VITALS: BP 157/91
[2025-06-25] MEDS: DILAUDID 1 MG IV (08:01)
[2025-06-25] MEDS: TORADOL 15 MG IV ×3 (09:42→21:15)
[2025-06-25] MEDS: TYLENOL 650 MG PO ×4 (09:42→21:15)
[2025-06-25] MEDS: ATIVAN 0.5 MG PO ×2 (09:56→22:48)
--- NOTE | 2025-06-25 10:58 | W.PN.CRS1 ---
Today's Communication / Plan
-
Full liquids
DC Mac
Adjusted pain medication
Lovenox
Assessment/Plan
-
POD#1 Laparotomy with colon resection, primary anastomosis, and colonoscopy.
WBC: 13.7, Hgb 12.3
vitals normal
- Advance diet to full liquids
- Increase Dilaudid to every 3 hours as needed. Tylenol and Toradol have been changed to standing orders. Will give Dilaudid 1 mg IV x 1 now.
- Out of bed as tolerated with physical therapy
- Or pathology pending
- Start Lovenox tonight for DVT prophylaxis. Teds and SCDs in place.
- Discontinue Mac
- Discussed plan with patient, father, and at bedside
Subjective Data
Procedure
06/24/2025- Laparotomy with colon resection, primary anastomosis, and colonoscopy.
Subjective Data
Date of Service: June 25, 2025
Patient states she had a lot of pain last night. The Dilaudid does help but it wears off quickly. She did have 1 instance of flatus. Denies bowel movement yet.
Objective Data
-
Vital Signs
Temp Pulse Resp BP Pulse Ox
98.2 F 93 17 157/91 100
06/25/25 07:35 06/25/25 07:35 06/25/25 07:35 06/25/25 07:35 06/25/25 07:35
Intake & Output
06/24/25 06/25/25 06/26/25
06:59 06:59 06:59
Intake Total 120 / 120 920 / 920
Output Total 1700 / 1700
Balance 120 / 120 -780 / -780
Intake:
Oral fluids 120 / 120 720 / 720
IV fluids (Total) 200 / 200
Normosol 200 / 200
Output:
Urine, Mac 1200 / 1200
Urine, Voided 500 / 500
Other:
Number of approximated MODERATE 2 1
amounts of urine
Lab Results
06/25/25 06:01
06/25/25 06:01
Physical Exam
-
General: No Acute Distress and AOx3
Abdomen: Soft, Non Distended and Tender (Mild around incisions)
Skin: Warm and Dry
Incision: Clear, Dry, Intact
[2025-06-25 11:25] VITALS: BP 122/71
--- NOTE | 2025-06-25 12:40 | PN.CDI ---
CDI
- -
CDI:
Physician Documentation Request
Admit Date: 06/17/25 22:13
Dear Doctor Parveen,
Please review the following and provide your response in the progress notes.
Clinical Indicators:
06/24/2025
POSTOPERATIVE DIAGNOSIS: Stercoral colitis.
PROCEDURE: Laparotomy with colon resection, primary anastomosis,
and colonoscopy.
DESCRIPTION OF FINDINGS:
1. Inspissated stool ball in the proximal sigmoid colon able to be
propagated distally and removed using a rigid proctoscope.
Colonoscopy with no obstructing mass but ulceration proximal to the
area with small walled off perforation.
Medications
Discontinued Medications
Piperacillin Sod/Tazobactam Sod (Zosyn) 3.375 gram in 50 mls @ 100 mls/hr IV NOW STA
Stop: 06/17/25 20:24
Last Admin: 06/17/25 20:04 Dose: 50 mls
Piperacillin Sod/Tazobactam Sod (Zosyn) 3.375 gram in 50 mls @ 100 mls/hr IV Q6H JACQUELINE
Last Admin: 06/22/25 14:09 Dose: 50 mls
Please provide a diagnosis for the above findings/treatment IV Zosyn:
Localized peritonitis
Perforated peritonitis
Ulceration colon
Other(please specify)
Use of terms such as suspected, likely, concern for, or probable (associated with a specific diagnosis that is being evaluated, monitored, or treated as if it exists) are acceptable and can be coded in the inpatient setting, when documented at the
time of discharge.
Thank you,
Kamla Corea RN BSN CCDS
CDI Specialist
Please contact via tiger text
Please use your independent medical judgment in providing your response.
--- NOTE | 2025-06-25 12:50 | W.PN.HOSP.TC ---
Today's Communication/Plan
-
Diet advancement per colorectal surgery
Monitor bowel function recovery
Pain control
Assessment / Plan
Assessment / Plan
Stercoral Colitis / Constipation
Fecal Impaction Ulcers in Sigmoid Colon
- Significantly impacted stools with ulcers from stool in colon -- bowel regimen and prep did not work and worsened patient's symptoms
- Stool collection was too proximal for manual disimpaction.
- Failed oral and rectal laxative regimen to relieve constipation.
- Colonoscopy preparation of the colon was poor; A few ulcers in the sigmoid colon - Biopsied; Internal hemorrhoids.
- Gastrografin enema showed a partial obstruction at mid descending colon level.
- Patient is s/p colonic segmental resection with internal anastomosis
- Postoperative care and diet advancement per colorectal surgery
- Has some postoperative reactive leukocytosis, afebrile. Continue monitor off antibiotics. Patient got dose of Invanz as part of pre-op treatment.
Hypokalemia - repleted
Migraine Headaches
Hyponatremia
-mild monitor
ADHD
- Stable. Patient has not taken Adderall in some time - takes only as needed during work.
DVT Prophylaxis: SCDs. Lovenox.
Code Status: Full Code
Anticipated Discharge: 24 - 48 hours
Subjective/Interval History
-
Date of Service: June 25, 2025
Some abdominal discomfort
No nausea or vomiting
Objective Data
-
Labs:
Laboratory Results
06/25/25
06:01
WBC 13.7 H
Hgb 12.3
Hct 35.8 L
Plt Count 384
Sodium 134 L
Potassium 4.6
Chloride 100
Carbon Dioxide 27
BUN 3 L
Creatinine 0.6
Glucose 103 H
Calcium 8.5
Vital Signs:
Vital Signs
Temp Pulse Resp BP Pulse Ox
98.2 F 102 16 122/71 99
06/25/25 11:25 06/25/25 11:25 06/25/25 11:25 06/25/25 11:25 06/25/25 11:25
I&O
06/24/25 06/25/25 06/26/25
06:59 06:59 06:59
Intake Total 120 / 120 920 / 920
Output Total 1700 / 1700
Balance 120 / 120 -780 / -780
Review of Systems
-
Respiratory: Reports No Symptoms
Cardiac: Reports No Symptoms
Abdomen/GI: Reports No Symptoms
Physical Exam
-
General: Negative Appears in Distress
HEENT: Negative Oxygen
GI: Normal Bowel Sounds, Tender and Other (Midline dressing)
Neuro: Awake, Alert and Oriented
Psych: Calm
[2025-06-25] MEDS: NORMOSOL-R/PLASMALYTE-A 1000 IV ×2 (13:28→21:17)
--- NOTE | 2025-06-25 14:43 | CM ---
CM following re: discharge planning.
Reviewed pt's chart, met with pt.
Pt is POD#1 Laparotomy with colon resection, primary anastomosis, and colonoscopy, continue supportive care.
Pt lives with in a townhouse and pt is independent in all areas [employer] PROVID[employer].
D/C plan: home with anticipated no needs. to transport at discharge.
CM will follow with discharge plan updates as hospitalization progresses.
[2025-06-25 15:15] VITALS: BP 120/76
[2025-06-25] MEDS: LOVENOX 30 MG SC (18:04)
[2025-06-25] MEDS: ROXICODONE 5 MG PO ×2 (18:09→22:48)
[2025-06-25 23:17] VITALS: BP 103/54
[2025-06-26] MEDS: TYLENOL 650 MG PO ×3 (03:00→13:30)
[2025-06-26] MEDS: TORADOL 15 MG IV ×2 (03:00→09:00)
[2025-06-26] MEDS: TYLENOL PO (05:07)
[2025-06-26 06:24] LABS: Hematocrit 29.7 % (37.0-47.0); Hemoglobin 10.4 g/dL (12.0-16.0); Mean Corp Hgb Conc. 35.0 g/dL (33.0-37.0); Mean Corpuscular Volume 94.0 fL (81.0-99.0); Platelet Count 335 10^3/uL (130-400); Red Cell Dist. Width 11.8 % (11.5-14.5)
[2025-06-26 06:47] LABS: Blood Urea Nitrogen 3 mg/dl (7-17); Calcium 8.0 mg/dl (8.4-10.2); Carbon Dioxide 30 mmol/L (22-30); Chloride 106 mmol/L (98-107); Estimated Creatinine Clearance 86 ml/min; Glucose 99 mg/dl (70-99); Potassium 3.7 mmol/L (3.5-5.1); Sodium 136 mmol/L (135-145); eGFR > 60.00
[2025-06-26] MEDS: ROXICODONE 5 MG PO ×2 (07:12→13:29)
[2025-06-26 07:15] VITALS: BP 127/84
[2025-06-26] MEDS: ATIVAN 0.5 MG PO (07:18)
[2025-06-26] MEDS: RELISTOR 8 MG SC (08:59)
--- NOTE | 2025-06-26 09:33 | PN.CDI ---
CDI
- -
CDI:
Physician Documentation Request
Admit Date: 06/17/25 22:13
Dear Doctor Edwin,
Please review the following and provide your response in the progress notes.
Clinical Indicators:
Laboratory Tests
06/18/25 06/19/25 06/20/25
07:31 08:24 07:43
Hgb 11.7 L 11.4 L 11.6 L
Hct 33.0 L 32.6 L 33.8 L
06/21/25 06/22/25 06/23/25
11:09 05:49 06:55
Hgb 11.3 L 12.2 12.1
Hct 32.0 L 34.5 L 34.5 L
06/24/25 06/25/25 06/26/25
08:17 06:01 06:09
Hgb 12.8 12.3 10.4 L
Hct 35.7 L 35.8 L 29.7 L
Based on the above and your clinical assessment, please clarify the most likely condition/diagnosis evaluated, monitored and/or treated?
Acute blood loss anemia
Acute blood loss anemia with baseline chronic anemia (Specify type)
Anemia of chronic disease - indicate if neoplastic disease, CKD or other
Other(please specify)
Use of terms such as suspected, likely, concern for, or probable (associated with a specific diagnosis that is being evaluated, monitored, or treated as if it exists) are acceptable and can be coded in the inpatient setting, when documented at the
time of discharge.
Thank you,
Kamla Corea RN BSN CCDS
CDI Specialist
Please contact via tiger text
Please use your independent medical judgment in providing your response.
--- NOTE | 2025-06-26 09:40 | PN.CDI ---
CDI
- -
CDI:
Physician Documentation Request
Admit Date: 06/17/25 22:13
Dear Doctor Edwin,
Please review the following and provide your response in the progress notes.
Clinical Indicators:
Laboratory Tests
06/18/25 06/19/25 06/20/25
07:31 08:24 07:43
Hgb 11.7 L 11.4 L 11.6 L
Hct 33.0 L 32.6 L 33.8 L
06/21/25 06/22/25 06/23/25
11:09 05:49 06:55
Hgb 11.3 L 12.2 12.1
Hct 32.0 L 34.5 L 34.5 L
06/24/25 06/25/25 06/26/25
08:17 06:01 06:09
Hgb 12.8 12.3 10.4 L
Hct 35.7 L 35.8 L 29.7 L
Based on the above and your clinical assessment, please clarify the most likely condition/diagnosis evaluated, monitored and/or treated?
Acute blood loss anemia
Acute blood loss anemia with baseline chronic anemia (Specify type)
Anemia of chronic disease - indicate if neoplastic disease, CKD or other
Abnormal lab value, clinically insignificant
Other(please specify)
Use of terms such as suspected, likely, concern for, or probable (associated with a specific diagnosis that is being evaluated, monitored, or treated as if it exists) are acceptable and can be coded in the inpatient setting, when documented at the
time of discharge.
Thank you,
Kamla Corea RN BSN CCDS
CDI Specialist
Please contact via tiger text
Please use your independent medical judgment in providing your response.
[2025-06-26] MEDS: DILAUDID 0.5 MG IV (09:57)
[2025-06-26] MEDS: NORMOSOL-R/PLASMALYTE-A 1000 IV (09:57)
--- NOTE | 2025-06-26 10:19 | W.PN.CRS1 ---
Addendum entered and electronically signed by Boby Adames MD 06/26/25 12:58:
Also of note, added Relistor to help prevent constipation.
Original Note:
Today's Communication / Plan
-
relistor
nutrition consult
repeat h/h
possible d/c later today
Assessment/Plan
-
POD#2 Laparotomy with colon resection, primary anastomosis, and colonoscopy.
WBC: 7.7, Hgb 10.4 (12.3)
vitals normal
- On a low residue diet. Requesting nutrition consult.
- Pain control: Tylenol/Toradol standing, Dilaudid and roxicodone PRN. Will add Relistor.
- Out of bed as tolerated with physical therapy
- Or pathology pending
- Lovenox for DVT prophylaxis. Teds and SCDs in place.
- Voiding post aceves removal.
- Repeat H/H this morning given drift in hemoglobin
- Discussed plan with patient, father, and at bedside - possible d/c later today if hemoglobin stable. Follow up in our office in 2 weeks. Genesis to be removed at that time.
Subjective Data
Procedure
06/24/2025- Laparotomy with colon resection, primary anastomosis, and colonoscopy.
Subjective Data
Date of Service: June 26, 2025
Patient states she has more energy today. She denies pain. She has flatus but no bowel movements.
Objective Data
-
Vital Signs
Temp Pulse Resp BP Pulse Ox
98.1 F 88 18 127/84 100
06/26/25 07:15 06/26/25 07:15 06/26/25 07:15 06/26/25 07:15 06/26/25 07:15
Intake & Output
08/07/25 08/08/25 08/09/25
06:59 06:59 06:59
Intake Total 920 / 920 2219 / 2219
Output Total 1700 / 1700
Balance -780 / -780 2219
Intake:
Oral fluids 720 / 720 1260 / 1260
IV fluids (Total) 200 / 200 960 / 960
Normosol 200 / 200
Output:
Urine, Aceves 1200 / 1200
Urine, Voided 500 / 500
Other:
Number of approximated MODERATE 1 4
amounts of urine
Lab Results
06/26/25 06:09
Physical Exam
-
General: No Acute Distress and AOx3
Abdomen: Soft, Non Distended and Non Tender
Skin: Warm and Dry
Incision: Clear, Dry, Intact
[2025-06-26 10:31] LABS: Hematocrit 33.0 % (37.0-47.0); Hemoglobin 11.5 g/dL (12.0-16.0)
--- NOTE | 2025-06-26 12:05 | W.PN.HOSP.TC ---
Today's Communication/Plan
-
monitor LR tolerance
pain meds adjusted
possible d/c today
Assessment / Plan
Assessment / Plan
Stercoral Colitis / Constipation
Fecal Impaction Ulcers in Sigmoid Colon
- Significantly impacted stools with ulcers from stool in colon -- bowel regimen and prep did not work and worsened patient's symptoms
- Stool collection was too proximal for manual disimpaction.
- Failed oral and rectal laxative regimen to relieve constipation.
- Colonoscopy preparation of the colon was poor; A few ulcers in the sigmoid colon - Biopsied; Internal hemorrhoids.
- Gastrografin enema showed a partial obstruction at mid descending colon level.
- Patient is s/p colonic segmental resection with internal anastomosis
- Postoperative care and diet advancement per colorectal surgery
- Has some postoperative reactive leukocytosis, afebrile. Continue monitor off antibiotics. Patient got dose of Invanz as part of pre-op treatment.
- Patient has been on low residue diet and has been cleared by colorectal surgery for discharge
Acute blood loss anemia
- Repeat hemoglobin check showing hemoglobin stable at 11.5.
- No reported BRBPR
Hypokalemia - repleted
Migraine Headaches
Hyponatremia
-mild monitor
ADHD
- Stable. Patient has not taken Adderall in some time - takes only as needed during work.
DVT Prophylaxis: SCDs. Lovenox.
Code Status: Full Code
Anticipated Discharge: Within 24 hours
Subjective/Interval History
-
Date of Service: June 26, 2025
Resting comfortably in bed, was having some pain in the morning and required IV Dilaudid to be given
Some nausea no vomiting
Appetite returning
no BM yet
Objective Data
-
Labs:
Laboratory Results
06/26/25 06/26/25
06:09 10:25
WBC 7.7
Hgb 10.4 L 11.5 L
Hct 29.7 L 33.0 L
Plt Count 335
Sodium 136
Potassium 3.7
Chloride 106
Carbon Dioxide 30
BUN 3 L
Creatinine 0.5 L
Glucose 99
Calcium 8.0 L
Vital Signs:
Vital Signs
Temp Pulse Resp BP Pulse Ox
98.1 F 88 18 127/84 100
06/26/25 07:15 06/26/25 07:15 06/26/25 07:15 06/26/25 07:15 06/26/25 07:15
I&O
06/25/25 06/26/25 06/27/25
06:59 06:59 06:59
Intake Total 920 / 920 2220 / 2220
Output Total 1700 / 1700
Balance -780 / -780 0 / 0
Review of Systems
-
Respiratory: Reports No Symptoms
Cardiac: Reports No Symptoms
Abdomen/GI: Reports Abdominal Pain and Nausea
Physical Exam
-
General: Comfortable
HEENT: Negative Oxygen
Neuro: Awake, Alert and Oriented
[2025-06-26 15:05] VITALS: BP 122/78
--- NOTE | 2025-06-26 18:14 | W.DCSUMMARY ---
Discharge Summary
Discharge Data
Date of Admission: 06/17/25
Date of Discharge: 06/26/25
-
Pending Results: No
Hospital Course
Discharging Physician : Dr Jose Pineda
Disposition : TO home
Primary care physician : Dr Andrea Acharya
Principal Discharge diagnosis :
Fecal impaction with mid sigmoid colon obstruction necessitating colon resection
Sigmoid colon mucosal ulcers
Stercoral colitis
Acute blood loss anemia
Electrolyte imbalance
Chronic Discharge diagnosis :
History of migraine
Attention deficit disorder
Hospital Course :
Patient is a 39-year-old female with no mentioned past medical history came to ER with new onset of abdominal pain and nausea. Patient started having some lower abdominal pain with nausea few days before. Patient had a underwent a transvaginal
ultrasound by obstructed which was unremarkable. In ER patient had a CT abdomen pelvis which showed severe constipation with possible stercoral colitis. Patient was started on MiraLAX and was discharged home unfortunately continued to have
worsening symptoms and came to ER for further evaluation. Patient was started on antibiotics initially and GI was involved in care. GI considered manually impaction although stool was located proximally. A colonoscopy was attempted although colon
prep was poor and was incomplete due to significant stool burden. Patient was started on trial of oral and rectal laxatives without any improvement in symptoms. Gastrografin enema was done which showed partial obstruction at mid descending colon
level. Colorectal surgeon evaluated patient and was taken to the OR in light of failure of medical therapy. Patient underwent segmental colonic resection with internal anastomosis. Postoperatively had an uncomplicated course and was able to be
advanced to a solid diet. Post medical stabilization patient was discharged home.
Important imaging findings :
None
Procedure findings :
None
Discharge Plan
-
Patient Disposition: Home (Routine Discharge)
Discharge Diagnosis/Procedures: Sigmoid colon resection with anastomosis
Condition: Fair
Diet: Low Residue
Activity: No strenuous activity
Additional Activity: No lifting over 10lbs (gallon of milk)
Driving Restrictions: No driving for 1 week
Bathing Restrictions: OK to Shower
Wound Care: Change midline wound with gauze and paper tape daily and as needed. Okay to leave open to air when stops oozing. The siobhan will be removed during your office visit with Dr. Adames. Okay to shower with no gauze on.
Instructions: Low-fiber diet
Referrals:
Demetrio Saini MD [Active, [facility]] - in two weeks
Andrea Acharya DO [Family Provider, [facility]] - in one week
Additional Discharge Medication Instructions: Tylenol or Ibuprofen as needed for pain. Maximum dose of Tylenol is 4,000mg in 24 hours. Maximum dose of Ibuprofen is 3,200mg in 24 hours.
Prescriptions:
New
polyethylene glycol 3350 [Miralax] 17 gram powder in packet
17 g PO DAILY Qty: 30 2RF
Rx Instructions:
HOLD DOSE IF HAVING DIARRHEA
bisacodyl [Dulcolax (bisacodyl)] 5 mg tablet,delayed release (DR/EC)
10 mg PO HSPRN PRN (Reason: Constipation) 15 Days Qty: 15 0RF
Rx Instructions:
Take a dose if no bowel movement with miralax
oxycodone 10 mg tablet
10 mg PO Q8H PRN (Reason: sev pain) Qty: 14 0RF
Rx Instructions:
Take half tablet for moderate pain
Continued
dextroamphetamine-amphetamine [Adderall] 20 MG tablet
30 mg PO TID
Patient Comments:
Pt states she takes this as needed, does not take every day.
Rx Instructions:
only when in school
cetirizine 10 mg Tablet
10 mg PO DAILY
Discharge Orders:
Discharge Patient (As Directed); Ordered 06/26/25
Ordered By: Jose Pineda
Discharge Date and Time
Discharge Date/Time: 06/26/25 17:04
Print Language: MALAY
== END 2025-06-26 17:04 | disposition home or self-care (01) | DRG 329 ==
LOC: 2 SOUTH 22:13
PROVIDERS: Hospitalist; Internal Medicine; Nurse Practitioner; Physician Assistant; Surgery; ADMITTING PHYSICIAN Hospitalist; ATTENDING PHYSICIAN Hospitalist; CONSULT PHYSICIAN Internal Medicine Gastroenterology; EMERGENCY PHYSICIAN Emergency Medicine; FAMILY PHYSICIAN Family Medicine; OTHER PHYSICIAN Surgery
PROC: 0DBN8ZX Excision of Sigmoid Colon, Via Natural or Artificial Opening Endoscopic, Diagnostic (ICD-10-PCS; 2025-06-22)
PROC: 0DBE4ZZ Excision of Large Intestine, Percutaneous Endoscopic Approach (ICD-10-PCS; 2025-06-24)
DX: K56.41 Fecal impaction (principal); K65.9 Peritonitis, unspecified; D62 Acute posthemorrhagic anemia; K63.3 Ulcer of intestine; E87.1 Hypo-osmolality and hyponatremia; K64.8 Other hemorrhoids; K52.89 Other specified noninfective gastroenteritis and colitis; E87.8 Other disorders of electrolyte and fluid balance, not elsewhere classified; F90.9 Attention-deficit hyperactivity disorder, unspecified type; G43.909 Migraine, unspecified, not intractable, without status migrainosus; Z91.040 Latex allergy status; E87.6 Hypokalemia; F41.9 Anxiety disorder, unspecified; K76.0 Fatty (change of) liver, not elsewhere classified
CPT/HCPCS: 74018; 74177; 74270; 80048; 80053; 83735; 84703; 85014; 85018; 85025; 85027; 85610; 85730; 86850; 86900; 86901; 88305; 88307; 96365; 96375; 97162; 99285; C1776; J1335; P9045; Q9967

== ENCOUNTER 2025-08-12 08:38 | Day surgery (SDC) | payer OTHER, SELFPAY | END 2025-08-12 11:02 | disposition home or self-care (01) | LOC: GI 08:38 | PROVIDERS: ATTENDING PHYSICIAN Internal Medicine Gastroenterology | DX: K63.3 Ulcer of intestine (principal); K64.9 Unspecified hemorrhoids; K59.00 Constipation, unspecified; Z98.0 Intestinal bypass and anastomosis status | CPT/HCPCS: 45378 ==

== ENCOUNTER 2025-09-30 06:32 | Day surgery (SDC) | payer OTHER, SELFPAY ==
[2025-09-30 08:07] VITALS: BMI 19.5
[2025-09-30 08:08] VITALS: BMI 19.5
[2025-09-30 08:09] VITALS: BP 107/70
[2025-09-30] MEDS: NORMOSOL-R/PLASMALYTE-A 1000 IV (08:12)
[2025-09-30 08:17] LABS: HCG, Urine Qualitative Screen Negative
[2025-09-30 09:50] VITALS: BP 107/70; BP 99/69
[2025-09-30 10:00] VITALS: BP 101/65
[2025-09-30 10:15] VITALS: BP 109/62
[2025-09-30 10:30] VITALS: BP 109/72
[2025-09-30 10:55] VITALS: BP 131/83
== END 2025-09-30 11:00 | disposition home or self-care (01) ==
LOC: SDS 06:32
PROVIDERS: ATTENDING PHYSICIAN Podiatrist Foot & Ankle Surgery
DX: M20.62 Acquired deformities of toe(s), unspecified, left foot (principal); L60.3 Nail dystrophy
CPT/HCPCS: 28150; 73620; 81025